=== PATIENT | male | born 1965 | race Caucasian/White ===

== ENCOUNTER → 2018-03-25 10:03 | Outpatient (CLI) | payer MEDICARE, SELFPAY ==
[2018-03-25 10:48] LABS: Absolute Lymphocyte Count 2.91 X10^3/ul (0.83-4.51); Absolute Neutrophil Count 14.6 X10^3/uL (2.0-7.7); Basophil# 0.02 X10^3/uL; Basophil% 0.1 % (0-1); Eosinophil# 0.01 X10^3/uL; Eosinophils% 0.1 % (0-5); Hematocrit 48.2 % (40-54); Hemoglobin 16.5 g/dl (13.0-16.5); Lymphocyte # 2.91 X10^3/ul (4.0); Lymphocyte % 15.2 % (19-41); Mean Corp Hgb Conc 34.2 g/gl (32-36); Mean Corpuscular Hgb 33.4 pg (27.0-32.0); Mean Corpuscular Volume 97.6 fL (80-94); Mean Platelet Vol. 12.4 fl (6.2-12.0); Monocyte# 1.44 X10^3/uL; Monocyte% 7.5 % (0-10); Neutrophil # 14.63 X10^3/uL (2.7-7.7); Neutrophil % 76.5 % (47-70); Platelet Count 224 K/mm3 (150-450); RBC Distribution Width CV 12.9 % (11.6-14.6); RBC Distribution Width SD 45.6 fl (35.1-43.9); Red Blood Count 4.94 M/mm3 (4.6-6.2); White Blood Count 19.1 K/mm3 (4.4-11.0)
[2018-03-25 10:52] LABS: POSITIVE COUNT NO; POSITIVE DIFFERENTIAL NO; POSITIVE MORPHOLOGY NO
[2018-03-25 11:16] LABS: AST(SGOT) 12 U/L (15-37); Alanine Aminotransfer ALT/SGPT 26 U/L (16-61); Alkaline Phosphatase 99 U/L (45-117); Anion Gap 10 (5-15); BUN 15 mg/dL (7-18); BUN/Creat Ratio 14.4 RATIO (10-20); Bilirubin, Direct 0.08 mg/dL (0.00-0.30); Calcium,Total 8.9 mg/dL (8.5-10.1); Chloride 107 mmol/L (98-107); Creatinine, Serum 1.04 mg/dL (0.70-1.30); EST Glomerular Filtration Rate 79 mL/min (>60); Est Glom Filt Rate - Afr Amer 95 mL/min (>60); Globulin 3.6 g/dL (2.2-4.2); Glucose 118 mg/dL (74-106); Protein, Total 7.6 g/dL (6.4-8.2); Sodium Level 142 mmol/L (136-145)
== END ==
PROVIDERS: Family Provider Family Medicine; PCP Family Medicine; Visit Provider Dermatology
DX: Z79.899 Other long term (current) drug therapy (principal)
CPT/HCPCS: 36415; 80048; 80076; 85025

== ENCOUNTER → 2018-04-15 10:33 | Outpatient (CLI) | payer MEDICARE, SELFPAY ==
[2018-04-15 11:38] LABS: Absolute Neutrophil Count 10.1 X10^3/uL (2.0-7.7); Basophil# 0.04 X10^3/uL; Basophil% 0.2 % (0-1); Eosinophil# 0.12 X10^3/uL; Eosinophils% 0.7 % (0-5); Hematocrit 47.8 % (40-54); Lymphocyte % 30.8 % (19-41); Mean Corp Hgb Conc 33.5 g/gl (32-36); Mean Corpuscular Hgb 33.1 pg (27.0-32.0); Mean Platelet Vol. 12.3 fl (6.2-12.0); Monocyte# 1.18 X10^3/uL; Monocyte% 7.1 % (0-10); Neutrophil # 10.06 X10^3/uL (2.7-7.7); Neutrophil % 60.9 % (47-70); Platelet Count 211 K/mm3 (150-450); RBC Distribution Width CV 12.9 % (11.6-14.6); RBC Distribution Width SD 46.7 fl (35.1-43.9); Red Blood Count 4.83 M/mm3 (4.6-6.2); White Blood Count 16.6 K/mm3 (4.4-11.0)
[2018-04-15 11:53] LABS: Differential Indicated SCAN CRITERIA MET; POSITIVE COUNT NO; POSITIVE DIFFERENTIAL YES; POSITIVE MORPHOLOGY NO
== END ==
PROVIDERS: Family Provider Family Medicine; PCP Family Medicine; Visit Provider Dermatology
DX: D72.829 Elevated white blood cell count, unspecified (principal); A63.0 Anogenital (venereal) warts; L53.8 Other specified erythematous conditions; L08.89 Other specified local infections of the skin and subcutaneous tissue; L43.8 Other lichen planus; B35.1 Tinea unguium
CPT/HCPCS: 36415; 85025

== ENCOUNTER → 2018-06-30 08:15 | Outpatient (CLI) | payer MEDICARE, SELFPAY ==
--- NOTE | 2018-06-30 08:17 | CT_ITS ---
HISTORY: 1PPD X 39 YEARS, COPD. LUNG CANCER SCREENING TECHNIQUE: Helically acquired images were obtained of the chest. A radiation dose optimization technique was used for this scan. IV Contrast dosage and agent: None. COMPARISON: None FINDINGS: Hyperinflation. No pulmonary nodule or mass. No pulmonary infiltrate or acute disease identified. No pleural effusion or significant pleural disease. No bronchiectasis. Atherosclerotic thoracic aorta which is normal in caliber. No pericardial effusion. 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 Cholecystectomy. CT/Low Dose CT Lung Screening IMPRESSION: 1. No pulmonary nodule, suspicious lesion, or acute disease. 2. Hyperinflation. 3. Atherosclerotic calcifications and previous CABG. 4. Recommend continued surveillance with follow-up low-dose CT chest exam in 1 year. Lung RADS 1: Negative Individualized dose optimization techniques were used for this CT. at 0001 Reported and signed by: Mauro Patricio MD Electronically Signed: Mauro Patricio, at 23:59 EST Tel , Service support ,
--- OUTSIDE RECORDS SUMMARY | 2018-08-25 13:23 | XMS RPT_ITS ---
:1965 Author Organization [place] Care Team Providers Name Role Phone JOSHUA RUBIO MD Attending Unavailable JOSHUA RUBIO MD Primary Care Unavailable FANNY CASTANO, DR. RAMESH Garsia Attending Unavailable JOSHUA RUBIO MD Primary Care Unavailable JOSHUA RUBIO MD Attending Unavailable JOSHUA RUBIO MD Primary Care Unavailable JOSHUA RUBIO MD Attending Unavailable JOSHUA RUBIO MD Primary Care Unavailable FANNY TIERNEY., DR. RAMESH Garsia Attending Unavailable JOSHUA RUBIO MD Primary Care Unavailable JOSHUA RUBIO MD Attending Unavailable JOSHUA RUBIO MD Primary Care Unavailable LOBO ALLEN Referring Unavailable LOBO ALLEN Attending Unavailable RAMESH ESCOBEDO CHAMBERLAIN Referring Unavailable TIFFANYLOBO Referring Unavailable KANJ, MOHAMED H Referring Unavailable KANJ, MOHAMED H Attending Unavailable KANJ, MOHAMED H Referring Unavailable KANJ, MOHAMED H Referring Unavailable ROXANNA SUN ([facility]) Attending Unavailable KANJ, MOHAMED H Referring Unavailable Ramesh Escobedo Attending Unavailable JOSHUA RUBIO Primary Care Unavailable Ramesh Escobedo Attending Unavailable Ramesh Escobedo Referring Unavailable JOSHUA RUBIO Primary Care Unavailable JOSHUA RUBIO Attending Unavailable JOSHUA RUBIO Referring Unavailable JOSHUA RUBIO Primary Care Unavailable PROBLEMS PROBLEMS DATE TYPE CONDITION / CODE ATTENDING STATUS SOURCE Active Unspecified right NA [place] [address] bundle-branch block / Clinic Main I45.10(ICD-10) [place] Repository Active Abnormal NA [place] [address] electrocardiogram Clinic Main (ECG) (EKG) / [place] R94.31(ICD-10) Repository Active Nicotine dependence, NA [place] [address] unspecified, Clinic Main uncomplicated / [place] F17.200(ICD-10) Repository Active Ventricular premature NA [place] [address] depolarization / Clinic Main I49.3(ICD-10) [place] Repository Active Leukemoid reaction / LOBO ALLEN Active [place] [address] D72.823(ICD-10) Clinic Main [place] Repository Active Elevated white blood NA [place] [address] cell count, Clinic Main unspecified / [place] D72.829(ICD-10) Repository Unknown Z79.899 - Other long Ramesh Escobedo Active [place] [address] term (current) drug Community therapy / Hospital Z79.899(ICD-10) Repository Admitting Encounter for RAMIRO TIERNEY, Active [place] [address] Diagnosis screening for JOSHUA Patiño [facility] malignant neoplasm of Repository prostate / Z12.5(ICD-10) Admitting Encounter for issue of RAMIRO TIERNEY, Active [place] [address] Diagnosis repeat prescription / JOSHUA Kaylyn [facility] Z76.0(ICD-10) Repository Admitting Other penitentiary FANNY CASTANO, Active [place] [address] Diagnosis (current) drug therapy RAMESH Garsia [facility] / Z79.899(ICD-10) Repository Admitting Other abnormal glucose RAMIRO TIERNEY, Active [place] [address] Diagnosis / R73.09(ICD-10) JOSHUA D. [facility] Repository Admitting Mixed hyperlipidemia / RAMIRO TIERNEY, Active [place] [address] Diagnosis E78.2(ICD-10) JOSHUA D. [facility] Repository Admitting Essential (primary) RAMIRO TIERNEY, Active [place] [address] Diagnosis hypertension / JOSHUA D. [facility] I10(ICD-10) Repository PROCEDURES PROCEDURES No Procedure Records FoundRESULTS RESULTS PROGRESS Observed: 06/30/2018 Status: COMPLETED Source: [facility] 2:55 PM [facility] REPOSITORY HNO ID: [id number] Author: Genesis Lugo (Health Aircraft Servicer) [place] Service: (none) Author Type: Health Educator Type: Progress Notes Filed: 06/30/2018 3:00 PM Note Text: Smoking Cessation Navigation Date contact made: 2017 Outcome of contact: Spoke with Stated eagerness/motivation to quit: Yes Attempts to Quit in the Past?: Yes Methods used to quit in the past: Wellbutrin Intervention Chosen By Patient: Declined Comments: Patient not open to talking with someone about quitting or group setting..etc. Would like to try acupuncture and/or hypnosis, but did not want to take phone number to schedule. eHealth Aircraft Servicer/Smoking Cessation Navigator: Genesis Low Health Aircraft Servicer LOW DOSE CT LUNG Observed: 06/30/2018 Status: F Source: [place] [facility] SCREENING 8:18 AM [facility] REPOSITORY [facility] Imaging Services [address] [place] [address] Lung Screening MR#: [id number] Acct: [id number] Name: GREG HAJI Rep #: [id number] : 1965 M 53 From: Mauro Patricio MD PCP: Joshua Rubio MD Status: REG CLI Study: Low Dose CT Lung Screening Date of Exam: 06/30/18 Exam# [id number] Ordering Dr: Joshua Rubio MD HISTORY: 1PPD X 39 YEARS, COPD. LUNG CANCER SCREENING TECHNIQUE: Helically acquired images were obtained of the chest. A radiation dose optimization technique was used for this scan. IV Contrast dosage and agent: None. COMPARISON: None FINDINGS: Hyperinflation. No pulmonary nodule or mass. No pulmonary infiltrate or acute disease identified. No pleural effusion or significant pleural disease. No bronchiectasis. Atherosclerotic thoracic aorta which is normal in caliber. No pericardial effusion. 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 Cholecystectomy. CT/Low Dose CT Lung Screening IMPRESSION: 1. No pulmonary nodule, suspicious lesion, or acute disease. 2. Hyperinflation. 3. Atherosclerotic calcifications and previous CABG. 4. Recommend continued surveillance with follow-up low-dose CT chest exam in 1 year. Lung RADS 1: Negative Individualized dose optimization techniques were used for this CT. at 0001 Reported and signed by: Mauro Patricio MD Electronically Signed: Mauro Patricio, at 23:59 EST Tel , Service support , CC: Joshua Rubio MD Photonics Technician: Signed HOSP Observed: 06/30/2018 Status: COMPLETED Source: [facility] 12:00 AM [facility] REPOSITORY Patient Update (WIQ) GREG HAJI JR. ([id number]) 1965 M Date Time Provider Department 06/30/18 GENESIS LOW (HEALTH METAL CONTROL COORDINATOR)WIQ During your visit today, we recorded the following information about you: Genesis Low Health Aircraft Servicer 06/30/2018 3:00 PM Signed Smoking Cessation Navigation Date contact made: 2017 Outcome of contact: Spoke with Stated eagerness/motivation to quit: Yes Attempts to Quit in the Past?: Yes Methods used to quit in the past: Wellbutrin Intervention Chosen By Patient: Declined Comments: Patient not open to talking with someone about quitting or group setting..etc. Would like to try acupuncture and/or hypnosis, but did not want to take phone number to schedule. eHealth Aircraft Servicer/Smoking Cessation Navigator: Genesis Low Health Aircraft Servicer Allergies As of Date: 06/30/2018 Noted Allergy Reaction LATEX 01/23/2011 2 - Rash Date Reviewed: 06/01/2018 Reviewed by: Melissa (Rn) OSITO Davey - Fully Assessed Reason for Visit: Smoking Cessation [1387] Prescriptions as of 06/30/2018 Sig: PERFLUTREN LIPID MICROSPHERES* Inject 1.3 mL intravenously a* PANTOPRAZOLE 40 MG TABLET,DEL* Take 40 mg by mouth once janneth* OFLOXACIN 0.3 % EAR DROPS Use 3 Drops in both ears twic* OXYCODONE-ACETAMINOPHEN 10 MG* Take 1 tablet by mouth twice * PRAVASTATIN 20 MG TABLET Take 20 mg by mouth once janneth* BUDESONIDE-FORMOTEROL HFA 160* Inhale 2 Puffs as instructed * NITROGLYCERIN 0.4 MG SUBLINGU* Dissolve 0.4 mg under the ton* LOSARTAN 25 MG TABLET Take 1 tablet by mouth once d* FLUTICASONE 50 MCG/ACTUATION * Use 1 Brandon in each nostril o* ALBUTEROL SULFATE HFA 90 MCG/* Inhale 2 Puffs as instructed * ASPIRIN 325 MG TABLET Take 1 tablet by mouth once d* MULTIVITAMIN TABLET Take 1 tablet by mouth once d* Problem List As Of Date 06/30/2018 Noted Resolved LUMBAR DISC DISPLACEMENT [M51.26] INVALID FOR* Status post aorto-coronary artery bypass graft * CAD (coronary artery disease) [I25.10] INVALID FOR* Hypertension [I10] INVALID FOR* Hyperlipidemia [E78.5] INVALID FOR* COPD (chronic obstructive pulmonary disease) (H*INVALID FOR* PVC (premature ventricular contraction) [I49.3] INVALID FOR* PVC's (premature ventricular contractions) [I49* Right bundle branch block [I45.10] Bundle branch block, right [I45.10] Encounter Status:Closed by DEVANTE HEALTH METAL CONTROL COORDINATORGENESIS on 06/30/18 PROGRESS Observed: 06/09/2018 Status: COMPLETED Source: [facility] 11:28 AM [facility] REPOSITORY HNO ID: [id number] Author: Roxanna Quiroz) [place] Service: (none) Author Type: Nurse Practitioner Type: Progress Notes Filed: 06/09/2018 11:31 AM Note Text: patient left without being seen today I called him from the lobby at 11:16am, but he had just walked out I tried to find him (called his name) in the lobby/upstairs with no success Roxanna Sun APRN.CNP CNOV Observed: 06/09/2018 Status: COMPLETED Source: [facility] 11:00 AM [facility] REPOSITORY Office Visit (TOTJB1) GREG HAJI JR. ([id number]) 1965 M Date Time Provider Department 06/09/18 11:00 AM ROXANNA SUN (DINH) TOTJB1 During your visit today, we recorded the following information about you: Roxanna Sun APRN.CNP 06/09/2018 11:31 AM Signed patient left without being seen today I called him from the lobby at 11:16am, but he had just walked out I tried to find him (called his name) in the lobby/upstairs with no success Roxanna Sun APRN.DINH Referring Provider: TRAVIS CHU [[id number]] Allergies As of Date: 06/09/2018 Noted Allergy Reaction LATEX 01/23/2011 2 - Rash Date Reviewed: 06/01/2018 Reviewed by: Melissa (Rn) OSITO Davey - Fully Assessed Primary Visit Diagnosis:Patient left without being seen [Z53.21] Prescriptions as of 06/09/2018 Sig: PERFLUTREN LIPID MICROSPHERES* Inject 1.3 mL intravenously a* PANTOPRAZOLE 40 MG TABLET,DEL* Take 40 mg by mouth once janneth* OFLOXACIN 0.3 % EAR DROPS Use 3 Drops in both ears twic* OXYCODONE-ACETAMINOPHEN 10 MG* Take 1 tablet by mouth twice * PRAVASTATIN 20 MG TABLET Take 20 mg by mouth once janneth* BUDESONIDE-FORMOTEROL HFA 160* Inhale 2 Puffs as instructed * NITROGLYCERIN 0.4 MG SUBLINGU* Dissolve 0.4 mg under the ton* LOSARTAN 25 MG TABLET Take 1 tablet by mouth once d* FLUTICASONE 50 MCG/ACTUATION * Use 1 Brandon in each nostril o* ALBUTEROL SULFATE HFA 90 MCG/* Inhale 2 Puffs as instructed * ASPIRIN 325 MG TABLET Take 1 tablet by mouth once d* MULTIVITAMIN TABLET Take 1 tablet by mouth once d* Problem List As Of Date 06/09/2018 Noted Resolved LUMBAR DISC DISPLACEMENT [M51.26] INVALID FOR* Status post aorto-coronary artery bypass graft * CAD (coronary artery disease) [I25.10] INVALID FOR* Hypertension [I10] INVALID FOR* Hyperlipidemia [E78.5] INVALID FOR* COPD (chronic obstructive pulmonary disease) (H*INVALID FOR* PVC (premature ventricular contraction) [I49.3] INVALID FOR* PVC's (premature ventricular contractions) [I49* Right bundle branch block [I45.10] Bundle branch block, right [I45.10] Encounter Status:Closed by ROXANNA SUN CNP on 06/09/18 CMP Collected: 06/09/2018 Status: F Source: [facility] 7:34 AM [facility] REPOSITORY TYPE CODE TESTS RESULT OUT OF REFERENCE UNITS RANGE LAB GLU(LOINC) 70-105 mg/dL Glucose High Level 121 LAB NA(LOINC) 136-145 mmol/L Sodium Level 142 LAB K(LOINC) 3.5-5.1 mmol/L Potassium Level 4.5 LAB CL(LOINC) 98-107 mmol/L Chloride 104 LAB CO2(LOINC) 22-29 mmol/L CO2 26 LAB EBAL(LOINC mEq/L ) Electrolyte Balance 12.0 LAB BUN(LOINC) 7-18 mg/dL BUN 17 LAB CRE(LOINC) 0.70-1.30 mg/dL Creatinine Lvl (s) 1.06 LAB BC(LOINC) 7-27 ratio BUN/Creatinine 16 Ratio LAB CA(LOINC) 8.4-10.2 mg/dL Calcium Lvl 9.2 LAB PROT(LOINC 6.4-8.2 G/dL ) Total Protein 6.8 LAB ALB(LOINC) 3.5-5.0 G/dL Albumin Level 4.0 LAB GLB(LOINC) G/dL Globulin 2.8 LAB AG(LOINC) 1.1-2.5 ratio A/G Ratio 1.4 LAB BILT(LOINC 0.2-1.0 mg/dL ) Bili Total 0.2 LAB AP(LOINC) 40-135 U/L Alk Phos 109 LAB AST(LOINC) 10-40 U/L AST/SGOT 20 LAB ALT(LOINC) 10-35 U/L ALT/SGPT High 36 Performed By: #### CMP, LIPID, GFR #### [address] [address] LIPID Collected: 06/09/2018 Status: F Source: [facility] 7:34 AM [facility] REPOSITORY TYPE CODE TESTS RESULT OUT OF REFERENCE UNITS RANGE LAB CHOL(LOINC 0-200 mg/dL ) Cholesterol 143 Result Comment: Cholesterol Reference Interval: Less than 200 Desirable 200-239 Borderline high risk 240 and above High risk LAB TRIG(LOINC) 0-150 mg/dL Triglycerides High 151 Result Comment: Triglyceride Reference Interval: Less than 150 Normal 150-199 Borderline high risk 200-499 High risk 500 or higher Very high risk LAB HD(LOINC) 40-60 mg/dL HDL Low Cholesterol 33 LAB LDL(LOINC) 0-130 mg/dL LDL Cholesterol 80 Performed By: #### CMP, LIPID, GFR #### [address] [address] .GFR Collected: 06/09/2018 Status: F Source: [facility] 7:34 AM [facility] REPOSITORY TYPE CODE TESTS RESULT OUT OF REFERENCE UNITS RANGE LAB GFRAA(LOINC ml/min/1.73 ) sqm GFR 88 Cameroonian Result Comment: GFR Population mean for , Non- Americans Ages 20-29 = 116 mL/min/1.73 sq.m. Ages 30-39 = 107 mL/min/1.73 sq.m. Ages 40-49 = 99 mL/min/1.73 sq.m. Ages 50-59 = 93 mL/min/1.73 sq.m. Ages 60-69 = 85 mL/min/1.73 sq.m. Ages 70+ = 75 mL/min/1.73 sq.m. Chronic Kidney Disease: Less than 60 mL/min/1.73 square meters End Stage Renal Disease: Less than 15 mL/min/1.73 square meters LAB GFRNO(LOINC) ml/min/1.73sqm GFR Non- 73 Result Comment: GFR Population mean for , Non- Americans Ages 20-29 = 116 mL/min/1.73 sq.m. Ages 30-39 = 107 mL/min/1.73 sq.m. Ages 40-49 = 99 mL/min/1.73 sq.m. Ages 50-59 = 93 mL/min/1.73 sq.m. Ages 60-69 = 85 mL/min/1.73 sq.m. Ages 70+ = 75 mL/min/1.73 sq.m. Chronic Kidney Disease: Less than 60 mL/min/1.73 square meters End Stage Renal Disease: Less than 15 mL/min/1.73 square meters Performed By: #### CMP, LIPID, GFR #### [place] [address] CNOV Observed: 06/01/2018 Status: COMPLETED Source: [facility] 9:15 AM [facility] REPOSITORY Office Visit (CARDMN) GREG HAJI JR. ([id number]) 1965 M Date Time Provider Department 06/01/18 9:15 AM TRAVIS CHU During your visit today, we recorded the following information about you: Pulse Blood pressure Weight Height 71/minute 128/74 103 kg 1.803 m Travis Chu MD, 06/01/2018 10:15 AM Signed [facility] [place] [facility] Department of Cardiovascular Medicine SECTION OF CARDIAC PACING and ELECTROPHYSIOLOGY OUTPATIENT VISIT DATE June 01, 2018 OUTPATIENT VISIT TYPE ESTABLISHED PRIMARY CARE PHYSICIAN: Joshua Rubio MD [address] [place] [address] CHIEF COMPLAINT: follow up palpitations HISTORY OF PRESENT ILLNESS: Mr. Haji is a 52 year old male who presents today for follow- up visit. NURSING INTAKE HISTORY: He has a past history of HTN, HLD, CAD s/p CABG x4, COPD, PVC's, RBBB, and cardiomyopathy. On 08/06/15 he underwent PVC ablation. He was last seen 05/28/2016. He has been feeling well, a few months ago he had a 6 week spell of palpitations. His symptoms are described as palpitations, heart racing, skipping. Past 2 weeks, little symptoms. No known triggers. No chest pains, dizziness, syncope. He last wore a monitor in 2017. PAST MEDICAL HISTORY Diagnosis Date - Bundle branch block, right - Cardiac revascularization with aortocoronary bypass anastomosis 4 vessel - COPD (chronic obstructive pulmonary disease) (HCC) - Hyperlipidemia - Hypertension - PVC's (premature ventricular contractions) - Right bundle branch block PAST SURGICAL HISTORY Procedure Laterality Date - EPS: SVT/VT ABLATION 08/06/15 - INCISION EARDRUM,ASPIR,GEN ANESTH Myringotomy/tubes - LAMINECTOMY,LUMBAR Laminectomy, lumbar - PAST SURGICAL HISTORY OF Lumbar discectomy with fusion , L3-S1 - PAST SURGICAL HISTORY OF removal of gallbladder - REMOVAL OF TONSILS,<12 Y/O Tonsillectomy SOCIAL HISTORY Social History Substance Use Topics - Smoking status: Current Every Day Smoker Packs/day: 1.00 Years: 41.00 Types: Cigarettes - Smokeless tobacco: Never Used Comment: went from 2 packs to 1 pack- trying to quit - Alcohol use No FAMILY HISTORY Problem Relation Age of Onset - Heart Father Alive age 77, history of bypass age 39, recent AAA surgery - Stroke Father - Hypertension Paternal Grandmother early 60's of [place] - Stroke Paternal Grandmother - Diabetes Sister Alive age 56 - Aneurysm Mother brain - Alcohol/Drug Brother - Cancer Maternal Grandfather leukemia - Obesity Sister ALLERGIES: ALLERGIES Allergen Reactions - Latex Rash MEDICATIONS: pantoprazole DR (PROTONIX) 40 mg tablet Take 40 mg by mouth once daily. ofloxacin (FLOXIN) 0.3 % otic solution Use 3 Drops in both ears twice daily. oxyCODONE-acetaminophen (PERCOCET) 10-325 mg tablet Take 1 tablet by mouth twice daily as needed. pravastatin (PRAVACHOL) 20 mg tablet Take 20 mg by mouth once daily. budesonide-formoterol (SYMBICORT) 160-4.5 mcg/actuation inhaler Inhale 2 Puffs as instructed once daily. nitroglycerin sublingual (NITROSTAT) 0.4 mg SL tablet Dissolve 0.4 mg under the tongue every 5 minutes as needed. losartan (COZAAR) 25 mg tablet Take 1 tablet by mouth once daily. fluticasone 50 mcg/actuation nasal spray Use 1 Brandon in each nostril once daily. albuterol HFA (PROAIR HFA) 90 mcg/actuation inhaler Inhale 2 Puffs as instructed every 4 hours as needed. aspirin 325 mg tablet Take 1 tablet by mouth once daily. multivitamin tablet Take 1 tablet by mouth once daily. UVALDO Archer RN I personally examined the patient and repeated the weaver components of the exam and cardiac history, past medical and surgical history, social and family history. The assessment and plan were formulated and discussed with the patient. PHYSICAL EXAMINATION: BP 128/74 Pulse 71 Ht 180.3 cm (5' 11) Wt 103 kg (227 lb) BMI 31.66 kg/m? Affect normal Oriented x3 GA NAD HENT unremarkable, No thyroidal bruit Abd Soft Ext No edema Skin warm, moist Lungs Clear Heart nl S1, S2 Motor 5/5 ECG sinus RBBB A: 1. Palpitation: This has been going on for started a couple month ago. Lasted for 2 weeks. Irregular heart beats but the irregularities are regular. . They are associated with SOB and tired. There is no precipitating or relieving factors. Will get a monitor standing order. He will put I ton when he has symptoms. 2. SOB: - with acitivity - stress echo 3. Smoking: - will see if we have Travis Chu MD Notes to Joshua Rubio MD Referring Provider: TRAVIS CHU [[id number]] Allergies As of Date: 06/01/2018 Noted Allergy Reaction LATEX 01/23/2011 2 - Rash Date Reviewed: 06/01/2018 Reviewed by: Melissa (Rn) OSITO Davey - Fully Assessed Primary Visit Diagnosis:Smoking [F17.200] Other Visit Diagnoses:Bundle branch block, right [I45.10] Ventricular premature depolarization [I49.3] Abnormal electrocardiogram [R94.31] Order(s):OUTSIDE VENDOR CARDIAC OUTPATIENT EXTENDED RHYTHM RECORDING (WITHOUT TELEMETRY) [[id number]] Order #: [id number]: 1 STRESS ECHO TREADMILL [[id number]] Order #: [id number]: 1 FUTURE perflutren lipid microspheres ([employer]) 1.1 mg/mL injection (to be provided with echo procedure)Inject 1.3 mL intravenously as directed.Disp: 1.3 mLRfl: 0 CONSULT TO SMOKING CESSATION [[id number]] Order #: [id number]: 1 Prescriptions as of 06/01/2018 Sig: PANTOPRAZOLE 40 MG TABLET,DEL* Take 40 mg by mouth once janneth* OFLOXACIN 0.3 % EAR DROPS Use 3 Drops in both ears twic* OXYCODONE-ACETAMINOPHEN 10 MG* Take 1 tablet by mouth twice * PRAVASTATIN 20 MG TABLET Take 20 mg by mouth once janneth* BUDESONIDE-FORMOTEROL HFA 160* Inhale 2 Puffs as instructed * NITROGLYCERIN 0.4 MG SUBLINGU* Dissolve 0.4 mg under the ton* LOSARTAN 25 MG TABLET Take 1 tablet by mouth once d* FLUTICASONE 50 MCG/ACTUATION * Use 1 Brandon in each nostril o* ALBUTEROL SULFATE HFA 90 MCG/* Inhale 2 Puffs as instructed * ASPIRIN 325 MG TABLET Take 1 tablet by mouth once d* MULTIVITAMIN TABLET Take 1 tablet by mouth once d* PERFLUTREN LIPID MICROSPHERES* Inject 1.3 mL intravenously a* Problem List As Of Date 06/01/2018 Noted Resolved LUMBAR DISC DISPLACEMENT [M51.26] INVALID FOR* Status post aorto-coronary artery bypass graft * CAD (coronary artery disease) [I25.10] INVALID FOR* Hypertension [I10] INVALID FOR* Hyperlipidemia [E78.5] INVALID FOR* COPD (chronic obstructive pulmonary disease) (H*INVALID FOR* PVC (premature ventricular contraction) [I49.3] INVALID FOR* PVC's (premature ventricular contractions) [I49* Right bundle branch block [I45.10] Bundle branch block, right [I45.10] Prescriptions ordered this encounter Disp Refills Start End PERFLUTREN LIPID MICROSPHERES 1.1 MG* 1.3 * 0 06/01/2018 06/01/2019 Class: In Office Route: INTRAVENOUS Sig: Inject 1.3 mL intravenously as directed. Encounter Status:Closed by TRAVIS CHU MD on 06/01/18 PROGRESS Observed: 06/01/2018 Status: COMPLETED Source: [facility] 9:06 AM [facility] REPOSITORY O ID: [id number] Author: Travis Chu MD Service: (none) Author Type: Physician Type: Progress Notes Filed: 06/01/2018 10:15 AM Note Text: [facility] [place] [facility] Department of Cardiovascular Medicine SECTION OF CARDIAC PACING and ELECTROPHYSIOLOGY OUTPATIENT VISIT DATE June 01, 2018 OUTPATIENT VISIT TYPE ESTABLISHED PRIMARY CARE PHYSICIAN: Joshua Rubio MD [facility] [place] [address] [place] [address] CHIEF COMPLAINT: follow up palpitations HISTORY OF PRESENT ILLNESS: Mr. Haji is a 52 year old male who presents today for follow- up visit. NURSING INTAKE HISTORY: He has a past history of HTN, HLD, CAD s/p CABG x4, COPD, PVC's, RBBB, and cardiomyopathy. On 08/06/15 he underwent PVC ablation. He was last seen 05/28/2016. He has been feeling well, a few months ago he had a 6 week spell of palpitations. His symptoms are described as palpitations, heart racing, skipping. Past 2 weeks, little symptoms. No known triggers. No chest pains, dizziness, syncope. He last wore a monitor in 2017. PAST MEDICAL HISTORY Diagnosis Date - Bundle branch block, right - Cardiac revascularization with aortocoronary bypass anastomosis 4 vessel - COPD (chronic obstructive pulmonary disease) (HCC) - Hyperlipidemia - Hypertension - PVC's (premature ventricular contractions) - Right bundle branch block PAST SURGICAL HISTORY Procedure Laterality Date - EPS: SVT/VT ABLATION 08/06/15 - INCISION EARDRUM,ASPIR,GEN ANESTH Myringotomy/tubes - LAMINECTOMY,LUMBAR Laminectomy, lumbar - PAST SURGICAL HISTORY OF Lumbar discectomy with fusion , L3-S1 - PAST SURGICAL HISTORY OF removal of gallbladder - REMOVAL OF TONSILS,<12 Y/O Tonsillectomy SOCIAL HISTORY Social History Substance Use Topics - Smoking status: Current Every Day Smoker Packs/day: 1.00 Years: 41.00 Types: Cigarettes - Smokeless tobacco: Never Used Comment: went from 2 packs to 1 pack- trying to quit - Alcohol use No FAMILY HISTORY Problem Relation Age of Onset - Heart Father Alive age 77, history of bypass age 39, recent AAA surgery - Stroke Father - Hypertension Paternal Grandmother early 60's of [place] - Stroke Paternal Grandmother - Diabetes Sister Alive age 56 - Aneurysm Mother brain - Alcohol/Drug Brother - Cancer Maternal Grandfather leukemia - Obesity Sister ALLERGIES: ALLERGIES Allergen Reactions - Latex Rash MEDICATIONS: pantoprazole DR (PROTONIX) 40 mg tablet Take 40 mg by mouth once daily. ofloxacin (FLOXIN) 0.3 % otic solution Use 3 Drops in both ears twice daily. oxyCODONE-acetaminophen (PERCOCET) 10-325 mg tablet Take 1 tablet by mouth twice daily as needed. pravastatin (PRAVACHOL) 20 mg tablet Take 20 mg by mouth once daily. budesonide-formoterol (SYMBICORT) 160-4.5 mcg/actuation inhaler Inhale 2 Puffs as instructed once daily. nitroglycerin sublingual (NITROSTAT) 0.4 mg SL tablet Dissolve 0.4 mg under the tongue every 5 minutes as needed. losartan (COZAAR) 25 mg tablet Take 1 tablet by mouth once daily. fluticasone 50 mcg/actuation nasal spray Use 1 Brandon in each nostril once daily. albuterol HFA (PROAIR HFA) 90 mcg/actuation inhaler Inhale 2 Puffs as instructed every 4 hours as needed. aspirin 325 mg tablet Take 1 tablet by mouth once daily. multivitamin tablet Take 1 tablet by mouth once daily. YANY ArcherN RN I personally examined the patient and repeated the weaver components of the exam and cardiac history, past medical and surgical history, social and family history. The assessment and plan were formulated and discussed with the patient. PHYSICAL EXAMINATION: BP 128/74 Pulse 71 Ht 180.3 cm (5' 11) Wt 103 kg (227 lb) BMI 31.66 kg/m? Affect normal Oriented x3 GA NAD HENT unremarkable, No thyroidal bruit Abd Soft Ext No edema Skin warm, moist Lungs Clear Heart nl S1, S2 Motor 5/5 ECG sinus RBBB A: 1. Palpitation: This has been going on for started a couple month ago. Lasted for 2 weeks. Irregular heart beats but the irregularities are regular. . They are associated with SOB and tired. There is no precipitating or relieving factors. Will get a monitor standing order. He will put I ton when he has symptoms. 2. SOB: - with acitivity - stress echo 3. Smoking: - will see if we have Travis Chu MD Notes to Joshua Rubio MD ECG COMPLETE W Observed: 06/01/2018 Status: F Source: [facility] 8:57 AM [facility] REPOSITORY NAME : GREG HAJI PID : [id number] : 1965 Gender : Male Race : ORD : [id number] Procedure Date : Jun 01 2018 08:57:39 Edit Date : Jun 01 2018 14:39:42 Diagnosis:NORMAL SINUS RHYTHM COMPLETE RIGHT BUNDLE BRANCH BLOCK ABNORMAL ECG Confirmed by Bhavin Oates ([id number]) on 06/01/2018 2:39:41 PM Ventricular Rate : 71 BPM Atrial Rate : 71 BPM P-R Interval : 196 ms QRS Duration : 140 ms Q-T Interval : 392 ms QTC Calculation(Bezet) : 425 ms P Austin : 53 degrees R Austin : 27 degrees T Austin : 56 degrees Test Reason : Location : 314 : J14 J14 Overread By : Bhavin Oates Edited By : Bhavin Oates Referred By : TRAVIS CHU Acquired by : DOROTEO CUELLAR PROGRESS Observed: 04/28/2018 Status: COMPLETED Source: [facility] 10:53 AM [facility] REPOSITORY O ID: [id number] Author: Lobo Allen Service: (none) Author Type: Physician Type: Progress Notes Filed: 05/03/2018 8:00 AM Note Text: Hematology and Medical Oncology PATIENT NAME: Greg Haji . CLINIC NO: [id number]. ATTENDING PHYSICIAN: Lobo Allen MD. DATE OF SERVICE:04/28/2018. DIAGNOSIS: chronic leukocytosis ( leukemoid reaction ) Consultation requested by Dr. Escobedo for an opinion regarding Chronic leukocytosis. My final recommendations will be communicated back to the requesting physician by way of shared Medical record or letter to requesting physician via US mail. PERFORMANCE STATUS:90% HPI: 52-year-old gentleman with history of ASCAD, hypertension and chronic leukocytosis. Patient also had chronic bronchitis / asthma AND chronic sinusitis from tobacco abuse. He was followed for over 10 years by a plant pathology teacher, Dr. Jacobsen. Although he did not have a bone marrow biopsy, patient has no significant change since his leukocytosis. previous workup including: elevated erythropoietin level AND hematocrit, no evidence of lymphoproliferative disorder with normal flow cytometry study. No evidence of myeloproliferative disorder; negative JAK2 AND BCR/ABL mutations. ? Patient denied fever, chills or night sweats. He has abdominal bloating but no early satiety or weight loss. 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 Escobedo. Patient has no problem with his teeth or sinuses at this time. No family history of leukemia or lymphoma. Patient denies alcohol use. He still smokes half pack cigarettes per day. He began smoking at age 11. Denies chest pain, or increased shortness of breath.?He has no rash or arthritis. Denies frequent or severe headaches and no neurological problem. MEDICATIONS: Current Outpatient Prescriptions: pantoprazole DR (PROTONIX) 40 mg tablet Take 40 mg by mouth once daily. ofloxacin (FLOXIN) 0.3 % otic solution Use 3 Drops in both ears twice daily. oxyCODONE-acetaminophen (PERCOCET) 10-325 mg tablet Take 1 tablet by mouth twice daily as needed. pravastatin (PRAVACHOL) 20 mg tablet Take 20 mg by mouth once daily. budesonide-formoterol (SYMBICORT) 160-4.5 mcg/actuation inhaler Inhale 2 Puffs as instructed once daily. nitroglycerin sublingual (NITROSTAT) 0.4 mg SL tablet Dissolve 0.4 mg under the tongue every 5 minutes as needed. losartan (COZAAR) 25 mg tablet Take 1 tablet by mouth once daily. fluticasone 50 mcg/actuation nasal spray Use 1 Brandon in each nostril once daily. albuterol HFA (PROAIR HFA) 90 mcg/actuation inhaler Inhale 2 Puffs as instructed every 4 hours as needed. aspirin 325 mg tablet Take 1 tablet by mouth once daily. multivitamin tablet Take 1 tablet by mouth once daily. No current facility-administered medications for this visit. . ALLERGIES: ALLERGIES Allergen Reactions - Latex Rash . PAST MEDICAL HISTORY: PAST MEDICAL HISTORY Diagnosis Date - Cardiac revascularization with aortocoronary bypass anastomosis 4 vessel - COPD (chronic obstructive pulmonary disease) (HCC) - Hyperlipidemia - Hypertension - PVC's (premature ventricular contractions) - Right bundle branch block . PAST SURGICAL HISTORY: PAST SURGICAL HISTORY Procedure Laterality Date - EPS: SVT/VT ABLATION 08/06/15 - INCISION EARDRUM,ASPIR,GEN ANESTH Myringotomy/tubes - LAMINECTOMY,LUMBAR Laminectomy, lumbar - PAST SURGICAL HISTORY OF Lumbar discectomy with fusion , L3-S1 - PAST SURGICAL HISTORY OF removal of gallbladder - REMOVAL OF TONSILS,<12 Y/O Tonsillectomy . FAMILY HISTORY: FAMILY HISTORY Problem Relation Age of Onset - Heart Father Alive age 77, history of bypass age 39, recent AAA surgery - Stroke Father - Hypertension Paternal Grandmother early 60's of [place] - Stroke Paternal Grandmother - Diabetes Sister Alive age 56 - Aneurysm Mother brain - Alcohol/Drug Brother - Cancer Maternal Grandfather leukemia - Obesity Sister . SOCIAL HISTORY:Social History Marital status: Single Spouse name: Years of education: Number of children: Social History Main Topics Smoking status: Current Every Day Smoker Packs/day: 1.00 Years: 39.00 Types: Cigarettes Smokeless tobacco: Never Used Comment: went from 2 packs to 1 pack- trying to quit Alcohol use: No Drug use: Yes Frequency: 2.0 times per week Comment: marijuana, he smokes 1 joint few times weekly . REVIEW OF SYSTEMS: CONSTITUTIONAL: No fevers, chills, nightsweats, unintended weight loss HEENT: Denies frequent or severe heaches, nasal congestion/sinus symptoms, problematic allergy problems. EYES: No diplopia or blurry vision. CARDIOVASCULAR: No chest pain, dyspnea, palpitations, orthopnea, PND, ankle edema. PULM: No dyspnea, unexplained cough. GI: No dysphagia/odynophagia, problematic reflux, constipation, diarrhea, changes in stool habits, hematochezia, melena. : No new urinary complaints, including dysuria, gross hematuria or pyuria. NEURO: No new balance problems, peripheral weakness/paresthesias or numbness of concern. MUSC-SKEL: No new joint pain, swelling, or erythema. PSY: No concerns regarding depression, anxiety or panic. INTEGUMENTARY: No new skin changes (rash, new or changing mole, new growth) PHYSICAL EXAMINATION: 52 year moderately obese gentleman appeared to be in no Acute distress BP 138/87 Pulse 78 Temp (Src) 97.8 (Oral) Ht 5' 9[verified by Melody Wilson MA[ (1.75m) Wt 226 lb (102.5kg) BMI 33.36 kg/(m2). HEENT: Head is normocephalic, atraumatic. Sclerae white, conjunctivae pink. PEERL. EOMs are intact. Oropharynx is benign. LYMPHATICS: There is no palpable adenopathy in the neck, supraclavicular region, axillae, or groin. LUNGS: Lungs are clear to percussion and auscultation.increased AP diameter, no wheezing. HEART: distant Heart sounds, regular rhythm, without murmurs, gallops, or rubs. ABDOMEN: obese, Soft and nontender without organomegaly. No masses can be palpated. EXTREMITIES: Are without edema. NEUROLOGIC: Exam is physiologic LABORATORY DATA: Component Latest Ref Rng AND Units 04/28/2018 WBC, [place] 3.70 - 11.00 k/uL 14.23 (H) RBC, [place] 4.20 - 6.00 m/uL 4.67 Hemoglobin, [place] 13.0 - 17.0 g/dL 15.8 Hematocrit, [place] 39.0 - 51.0 % 46.3 MCV, [place] 80.0 - 100.0 fL 99.1 MCH, [place] 26.0 - 34.0 pg 33.8 MCHC, [place] 30.5 - 36.0 g/dL 34.1 RDW, [place] 11.5 - 15.0 % 13.1 Platelet Cnt, [place] 150 - 400 k/uL 201 MPV, [place] 9.0 - 12.7 fL 11.7 Absol Gran Count 1.45 - 7.50 k/uL 8.25 (H) peripheral blood smear: Leukocytosis, neutrophilia with toxic granulation, occasional metamyelocyte, platelets adequate without clumping clotting. 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 There is no evidence of lymphoproliferative disorder, or myeloproliferative disorder. No clinical evidence of occult malignancy PLAN: - Repeat sedimentation rate and CRP today. - check hepatitis C antibody AND HIV-1 and 2 screen - I also recommend low dose CT scan of chest screening for lung cancer - I again emphasized that patient needs to stop smoking since this may cause a chronic leukocytosis along with polycythemia. - I spent 45 minutes in the visit, with more than 50% of the total [id number] time of the visit in counseling / coordination of care. The patient was allowed enough time to ask questions. All questions were answered to his satisfaction. Patient verbalized understanding of his abnormal CBC and agreed to follow up with primary care. Lobo Allen MD. ELECTRONICALLY SIGNED Cc: Dr. Joshua Rubio CNOVSP Observed: 04/28/2018 Status: COMPLETED Source: [facility] 10:10 AM [facility] REPOSITORY Visit (SP) Office ([place]) GREG HAJI JR. ([id number]) 1965 M Date Time Provider Department 04/28/18 10:10 AM LOBO ALLEN During your visit today, we recorded the following information about you: Temperature Pulse Blood pressure Weight 97.8 degrees 78/minute 138/87 102.5 kg Height 1.753 m Fang Mirza LPN 04/28/2018 9:49 AM Signed New patient. Discuss recent labs and leukocytosis. Fang Allen MD 04/28/2018 10:30 AM Signed Low dose CT scan chest for lung cancer screening AND STOP smoking. Lobo Allen MD 05/03/2018 8:00 AM Signed Hematology and Medical Oncology PATIENT NAME: Greg Haji Jr.. CLINIC NO: [id number]. ATTENDING PHYSICIAN: Lobo Allen MD. DATE OF SERVICE:04/28/2018. DIAGNOSIS: chronic leukocytosis ( leukemoid reaction ) Consultation requested by Dr. Escobedo for an opinion regarding Chronic leukocytosis. My final recommendations will be communicated back to the requesting physician by way of shared Medical record or letter to requesting physician via US mail. PERFORMANCE STATUS:90% HPI: 52-year-old gentleman with history of ASCAD, hypertension and chronic leukocytosis. Patient also had chronic bronchitis / asthma AND chronic sinusitis from tobacco abuse. He was followed for over 10 years by a plant pathology teacher, Dr. Jacobsen. Although he did not have a bone marrow biopsy, patient has no significant change since his leukocytosis. previous workup including: elevated erythropoietin level AND hematocrit, no evidence of lymphoproliferative disorder with normal flow cytometry study. No evidence of myeloproliferative disorder; negative JAK2 AND BCR/ABL mutations. ? Patient denied fever, chills or night sweats. He has abdominal bloating but no early satiety or weight loss. 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 Escobedo. Patient has no problem with his teeth or sinuses at this time. No family history of leukemia or lymphoma. Patient denies alcohol use. He still smokes half pack cigarettes per day. He began smoking at age 11. Denies chest pain, or increased shortness of breath.?He has no rash or arthritis. Denies frequent or severe headaches and no neurological problem. MEDICATIONS: Current Outpatient Prescriptions: pantoprazole DR (PROTONIX) 40 mg tablet Take 40 mg by mouth once daily. ofloxacin (FLOXIN) 0.3 % otic solution Use 3 Drops in both ears twice daily. oxyCODONE-acetaminophen (PERCOCET) 10-325 mg tablet Take 1 tablet by mouth twice daily as needed. pravastatin (PRAVACHOL) 20 mg tablet Take 20 mg by mouth once daily. budesonide-formoterol (SYMBICORT) 160-4.5 mcg/actuation inhaler Inhale 2 Puffs as instructed once daily. nitroglycerin sublingual (NITROSTAT) 0.4 mg SL tablet Dissolve 0.4 mg under the tongue every 5 minutes as needed. losartan (COZAAR) 25 mg tablet Take 1 tablet by mouth once daily. fluticasone 50 mcg/actuation nasal spray Use 1 Brandon in each nostril once daily. albuterol HFA (PROAIR HFA) 90 mcg/actuation inhaler Inhale 2 Puffs as instructed every 4 hours as needed. aspirin 325 mg tablet Take 1 tablet by mouth once daily. multivitamin tablet Take 1 tablet by mouth once daily. No current facility-administered medications for this visit. . ALLERGIES: ALLERGIES Allergen Reactions - Latex Rash . PAST MEDICAL HISTORY: PAST MEDICAL HISTORY Diagnosis Date - Cardiac revascularization with aortocoronary bypass anastomosis 4 vessel - COPD (chronic obstructive pulmonary disease) (HCC) - Hyperlipidemia - Hypertension - PVC's (premature ventricular contractions) - Right bundle branch block . PAST SURGICAL HISTORY: PAST SURGICAL HISTORY Procedure Laterality Date - EPS: SVT/VT ABLATION 08/06/15 - INCISION EARDRUM,ASPIR,GEN ANESTH Myringotomy/tubes - LAMINECTOMY,LUMBAR Laminectomy, lumbar - PAST SURGICAL HISTORY OF Lumbar discectomy with fusion , L3-S1 - PAST SURGICAL HISTORY OF removal of gallbladder - REMOVAL OF TONSILS,<12 Y/O Tonsillectomy . FAMILY HISTORY: FAMILY HISTORY Problem Relation Age of Onset - Heart Father Alive age 77, history of bypass age 39, recent AAA surgery - Stroke Father - Hypertension Paternal Grandmother early 60's of [place] - Stroke Paternal Grandmother - Diabetes Sister Alive age 56 - Aneurysm Mother brain - Alcohol/Drug Brother - Cancer Maternal Grandfather leukemia - Obesity Sister . SOCIAL HISTORY:Social History Marital status: Single Spouse name: Years of education: Number of children: Social History Main Topics Smoking status: Current Every Day Smoker Packs/day: 1.00 Years: 39.00 Types: Cigarettes Smokeless tobacco: Never Used Comment: went from 2 packs to 1 pack- trying to quit Alcohol use: No Drug use: Yes Frequency: 2.0 times per week Comment: marijuana, he smokes 1 joint few times weekly . REVIEW OF SYSTEMS: CONSTITUTIONAL: No fevers, chills, nightsweats, unintended weight loss HEENT: Denies frequent or severe heaches, nasal congestion/sinus symptoms, problematic allergy problems. EYES: No diplopia or blurry vision. CARDIOVASCULAR: No chest pain, dyspnea, palpitations, orthopnea, PND, ankle edema. PULM: No dyspnea, unexplained cough. GI: No dysphagia/odynophagia, problematic reflux, constipation, diarrhea, changes in stool habits, hematochezia, melena. : No new urinary complaints, including dysuria, gross hematuria or pyuria. NEURO: No new balance problems, peripheral weakness/paresthesias or numbness of concern. MUSC-SKEL: No new joint pain, swelling, or erythema. PSY: No concerns regarding depression, anxiety or panic. INTEGUMENTARY: No new skin changes (rash, new or changing mole, new growth) PHYSICAL EXAMINATION: 52 year moderately obese gentleman appeared to be in no Acute distress BP 138/87 Pulse 78 Temp (Src) 97.8 (Oral) Ht 5' 9[verified by Melody Wilson MA[ (1.75m) Wt 226 lb (102.5kg) BMI 33.36 kg/(m2). HEENT: Head is normocephalic, atraumatic. Sclerae white, conjunctivae pink. PEERL. EOMs are intact. Oropharynx is benign. LYMPHATICS: There is no palpable adenopathy in the neck, supraclavicular region, axillae, or groin. LUNGS: Lungs are clear to percussion and auscultation.increased AP diameter, no wheezing. HEART: distant Heart sounds, regular rhythm, without murmurs, gallops, or rubs. ABDOMEN: obese, Soft and nontender without organomegaly. No masses can be palpated. EXTREMITIES: Are without edema. NEUROLOGIC: Exam is physiologic LABORATORY DATA: Component Latest Ref Rng AND Units 04/28/2018 WBC, [place] 3.70 - 11.00 k/uL 14.23 (H) RBC, [place] 4.20 - 6.00 m/uL 4.67 Hemoglobin, [place] 13.0 - 17.0 g/dL 15.8 Hematocrit, [place] 39.0 - 51.0 % 46.3 MCV, [place] 80.0 - 100.0 fL 99.1 MCH, [place] 26.0 - 34.0 pg 33.8 MCHC, [place] 30.5 - 36.0 g/dL 34.1 RDW, [place] 11.5 - 15.0 % 13.1 Platelet Cnt, [place] 150 - 400 k/uL 201 MPV, [place] 9.0 - 12.7 fL 11.7 Absol Gran Count 1.45 - 7.50 k/uL 8.25 (H) peripheral blood smear: Leukocytosis, neutrophilia with toxic granulation, occasional metamyelocyte, platelets adequate without clumping clotting. 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 There is no evidence of lymphoproliferative disorder, or myeloproliferative disorder. No clinical evidence of occult malignancy PLAN: - Repeat sedimentation rate and CRP today. - check hepatitis C antibody AND HIV-1 and 2 screen - I also recommend low dose CT scan of chest screening for lung cancer - I again emphasized that patient needs to stop smoking since this may cause a chronic leukocytosis along with polycythemia. - I spent 45 minutes in the visit, with more than 50% of the total [id number]-[id number] time of the visit in counseling / coordination of care. The patient was allowed enough time to ask questions. All questions were answered to his satisfaction. Patient verbalized understanding of his abnormal CBC and agreed to follow up with primary care. Lobo Allen MD. ELECTRONICALLY SIGNED Cc: Dr. Johsua Rubio Referring Provider: RAMESH ESCOBEDO [[id number]] Allergies As of Date: 04/28/2018 Noted Allergy Reaction LATEX 01/23/2011 2 - Rash Date Reviewed: 04/28/2018 Reviewed by: Fang Mirza LPN - Fully Assessed Reason for Visit: New Patient [172] Primary Visit Diagnosis:Leukemoid reaction [D72.823] Order(s):C-REACTIVE PROTEIN (CRP) [SQCRP] Order #: [id number] FUTURE SED RATE WESTERGREN [SQWSR] Order #: [id number] FUTURE HIV 1,2 COMBO (AG/AB) [SQHIV12] Order #: [id number] FUTURE HEP C AB IA BLOOD [SQAHCV] Order #: [id number] FUTURE Level of Service: EST PATIENT VISIT LEVEL 5 [73970] Disposition: Return if symptoms worsen or fail to improve. Follow-up and Disposition History Recorded Prescriptions as of 04/28/2018 Sig: PANTOPRAZOLE 40 MG TABLET,DEL* Take 40 mg by mouth once janneth* OFLOXACIN 0.3 % EAR DROPS Use 3 Drops in both ears twic* OXYCODONE-ACETAMINOPHEN 10 MG* Take 1 tablet by mouth twice * PRAVASTATIN 20 MG TABLET Take 20 mg by mouth once janneth* BUDESONIDE-FORMOTEROL HFA 160* Inhale 2 Puffs as instructed * NITROGLYCERIN 0.4 MG SUBLINGU* Dissolve 0.4 mg under the ton* LOSARTAN 25 MG TABLET Take 1 tablet by mouth once d* FLUTICASONE 50 MCG/ACTUATION * Use 1 Brandon in each nostril o* ALBUTEROL SULFATE HFA 90 MCG/* Inhale 2 Puffs as instructed * ASPIRIN 325 MG TABLET Take 1 tablet by mouth once d* MULTIVITAMIN TABLET Take 1 tablet by mouth once d* Medication notes this encounter LANSOPRAZOLE 30 MG CAPSULE,DELAYED RELEASE >> Fang Mirza LPN 04/28/2018 9:42 AM >> FANG MIRZA LPN ThuApr 28, 2018 9:42 AM discontinued Problem List As Of Date 04/28/2018 Noted Resolved LUMBAR DISC DISPLACEMENT [M51.26] INVALID FOR* Status post aorto-coronary artery bypass graft * CAD (coronary artery disease) [I25.10] INVALID FOR* Hypertension [I10] INVALID FOR* Hyperlipidemia [E78.5] INVALID FOR* COPD (chronic obstructive pulmonary disease) (H*INVALID FOR* PVC (premature ventricular contraction) [I49.3] INVALID FOR* PVC's (premature ventricular contractions) [I49* Right bundle branch block [I45.10] Other instructions from your clinician: Low dose CT scan chest for lung cancer screening AND STOP smoking. Visit Notes: >> Fang Mirza LPN ThuApr 28, 2018 9:40 AM Status: Signed New patient. Discuss recent labs and leukocytosis. Fang Mirza LPN Encounter Status:Closed by LOBO ALLEN MD on 05/03/18 [facility] G ABS GR + CBC Collected: 04/28/2018 Status: F Source: [facility] 9:29 AM [facility] REPOSITORY TYPE CODE TESTS RESULT OUT OF REFERENCE UNITS RANGE LAB WWBC 3.70-11.00 k/uL [place] High WBC 14.23 LAB WRBC 4.20-6.00 m/uL [place] RBC 4.67 LAB WHGB 13.0-17.0 g/dL [place] Hemoglobin 15.8 LAB WHCT 39.0-51.0 % [place] Hematocrit 46.3 LAB WMCV 80.0-100.0 fL [place] MCV 99.1 LAB WMCH 26.0-34.0 pg [place] MCH 33.8 LAB WMCHC 30.5-36.0 g/dL [place] MCHC 34.1 LAB WRDW 11.5-15.0 % [place] RDW 13.1 LAB WPLT 150-400 k/uL [place] Platelet Cnt 201 LAB WMPV 9.0-12.7 fL [place] MPV 11.7 Result Comment: Test performed at: [facility], [address] [place] [address]. LAB ABGRAN 1.45-7.50 k/uL High Absol 8.25 Gran Count SED RATE WESTERGREN Collected: 04/28/2018 Status: F Source: [facility] 9:29 AM [facility] REPOSITORY TYPE CODE TESTS RESULT OUT OF REFERENCE UNITS RANGE LAB WSR 0-15 mm/hr Sed Rate Westergren 2 Performed By: #### WSR, CRP, AHCV, HIV12C #### [facility] [address] [address] C-REACTIVE PROTEIN Collected: 04/28/2018 Status: F Source: [place] 9:29 AM [facility] REPOSITORY TYPE CODE TESTS RESULT OUT OF REFERENCE UNITS RANGE LAB CRP <0.9 mg/dL C-Reactive 0.1 Protein Performed By: #### WSR, CRP, AHCV, HIV12C #### [facility] [address] [address] HEPATITIS C AB IA Collected: 04/28/2018 Status: F Source: [place] 9:29 AM [facility] REPOSITORY TYPE CODE TESTS RESULT OUT OF REFERENCE UNITS RANGE LAB AHCV Negative Hepatitis C Ab Negative IA Performed By: #### WSR, CRP, AHCV, HIV12C #### [facility] [address] [address] HIV 12 COMBO (AG/AB) Collected: 04/28/2018 Status: F Source: [facility] 9:29 AM [facility] REPOSITORY TYPE CODE TESTS RESULT OUT OF REFERENCE UNITS RANGE LAB HVAGAB Non Reactive HIV Non Reactive 12 Ag/Ab Result Comment: (NOTE) HIV Information: [place] Rev. Code 3701.243(E): This information has been disclosed to you from confidential records protected from disclosure by state law. You shall make no further disclosure of this information without the specific, written, and informed release of the individual to whom it pertains, or as otherwise permitted by state law. A general authorization for the release of medical or other information is not sufficient for the purpose of the release of HIV test results or diagnoses. Performed By: #### WSR, CRP, AHCV, HIV12C #### [facility] [address] [place], [place] [address] CBC W/DIFF, AUTOMATED Collected: 04/15/2018 Status: F Source: [place] 10:39 AM [facility] REPOSITORY TYPE CODE TESTS RESULT OUT OF RANGE REFERENCE UNITS LAB L100.1000 4.4-11.0 K/mm3 High WBC 16.6 LAB L100.1200 4.6-6.2 M/mm3 Normal RBC 4.83 LAB L100.1300 13.0-16.5 g/dl Normal HGB 16.0 LAB L100.1400 40-54 % Normal HCT 47.8 LAB L100.1500 80-94 fL High MCV 99.0 LAB L100.1600 27.0-32.0 pg High MCH 33.1 LAB L100.1700 32-36 g/gl Normal MCHC 33.5 LAB L100.1810 11.6-14.6 % Normal RDW CV 12.9 LAB L100.1820 35.1-43.9 fl High RDW SD 46.7 LAB L100.1900 150-450 K/mm3 Normal PLT 211 LAB L100.2000 6.2-12.0 fl High MPV 12.3 LAB L100.2100 47-70 % Normal NEUT% 60.9 LAB L100.2200 19-41 % Normal LY% 30.8 LAB L100.2300 0-10 % Normal MONO% 7.1 LAB L100.2400 0-5 % Normal EO% 0.7 LAB L100.2500 0-1 % Normal BASO% 0.2 LAB L100.2550 0.0-0.9 % Normal IM GRAN % 0.300 Result Comment: IG% - Immature Granulocytes (promyelocytes, myelocytes and metamyelocytes) > 1% indicates that a LEFT SHIFT is Present. LAB L100.2620 2.0-7.7 X10 3/uL High Absolute Neut 10.1 LAB L100.2720 0.83-4.51 X10 3/ul High Absolute Lymph 5.10 LAB L100.4500 Normal SMEAR COMMENT COMMENT Result Comment: SLIDE SCANNED - LYMPHOCYTOSIS. Performed By: #### L100.0100 #### [facility] [address] [place], [place], [id number] CBC W/DIFF, AUTOMATED Collected: 03/25/2018 Status: F Source: [place] 10:13 AM [facility] REPOSITORY TYPE CODE TESTS RESULT OUT OF RANGE REFERENCE UNITS LAB L100.1000 4.4-11.0 K/mm3 High WBC 19.1 LAB L100.1200 4.6-6.2 M/mm3 Normal RBC 4.94 LAB L100.1300 13.0-16.5 g/dl Normal HGB 16.5 LAB L100.1400 40-54 % Normal HCT 48.2 LAB L100.1500 80-94 fL High MCV 97.6 LAB L100.1600 27.0-32.0 pg High MCH 33.4 LAB L100.1700 32-36 g/gl Normal MCHC 34.2 LAB L100.1810 11.6-14.6 % Normal RDW CV 12.9 LAB L100.1820 35.1-43.9 fl High RDW SD 45.6 LAB L100.1900 150-450 K/mm3 Normal PLT 224 LAB L100.2000 6.2-12.0 fl High MPV 12.4 LAB L100.2100 47-70 % High NEUT% 76.5 LAB L100.2200 19-41 % Low LY% 15.2 LAB L100.2300 0-10 % Normal MONO% 7.5 LAB L100.2400 0-5 % Normal EO% 0.1 LAB L100.2500 0-1 % Normal BASO% 0.1 LAB L100.2550 0.0-0.9 % Normal IM GRAN % 0.600 Result Comment: IG% - Immature Granulocytes (promyelocytes, myelocytes and metamyelocytes) > 1% indicates that a LEFT SHIFT is Present. LAB L100.2620 2.0-7.7 X10 3/uL High Absolute Neut 14.6 LAB L100.2720 0.83-4.51 X10 3/ul Normal Absolute Lymph 2.91 Performed By: #### L100.0100 #### [facility] [address] [facility] [facility]. [place], [place], [address] BASIC METABOLIC Collected: 03/25/2018 Status: F Source: MARIA G PROFILE (BMP) 10:13 AM [facility] REPOSITORY TYPE CODE TESTS RESULT OUT OF RANGE REFERENCE UNITS LAB L501.0100 74-106 mg/dL High GLU 118 Result Comment: Fasting Glucose result from 100 to 125 mg/dL suggests IMPAIRED HOMEOSTASIS per A.D.A. criteria. Please note revised GLUCOSE reference range effective 2017. LAB L501.1000 7-18 mg/dL Normal BUN 15 LAB L501.1100 0.70-1.30 mg/dL Normal CREAT,SERUM 1.04 Result Comment: The validity of the calculated GFR AND GFRAA in patients over 70 years has not been determined. Clinical correlation is essential. LAB L501.1110 >60 mL/min Normal EST GFR 79 Result Comment: Non- GFR Calc LAB L501.1115 >60 mL/min Normal EST GFR - AA 95 Result Comment: GFR Calc LAB L501.1300 10-20 RATIO Normal BUN/CRE 14.4 LAB L501.2200 8.5-10.1 mg/dL CA Normal 8.9 LAB L501.5300 136-145 mmol/L NA Normal 142 LAB L501.5600 3.5-5.1 mmol/L K Normal 4.0 LAB L501.5900 98-107 mmol/L CL Normal 107 LAB L501.6100 21.0-32.0 mmol/L Normal CO2 25.0 LAB L501.6200 5-15 Normal GAP 10 Performed By: #### L500.2500, L500.3400 #### [facility] [address] [place], [address] LIVER PROFILE Collected: 03/25/2018 Status: F Source: MARIA G 10:13 AM [facility] REPOSITORY TYPE CODE TESTS RESULT OUT OF RANGE REFERENCE UNITS LAB L501.1500 6.4-8.2 g/dL Normal T PROT 7.6 LAB L501.1800 3.2-5.0 g/dL Normal ALB 4.0 LAB L501.1950 2.2-4.2 g/dL Normal GLOB 3.6 LAB L501.4100 15-37 U/L Low AST 12 LAB L501.4305 45-117 U/L Normal ALK P 99 LAB L501.4405 16-61 U/L Normal ALT 26 LAB L501.4600 0.20-1.00 mg/dL Normal T BILI 0.20 LAB L501.4700 0.00-0.30 mg/dL Normal D BILI 0.08 Performed By: #### L500.2500, L500.3400 #### [facility] [address] [place], [place], [address] CBC Collected: 12/09/2017 Status: F Source: [facility] 8:20 AM [facility] REPOSITORY TYPE CODE TESTS RESULT OUT OF REFERENCE UNITS RANGE LAB WBC(LOINC) 4.60-10.80 10 3/mcL High WBC 12.50 LAB RBCCT(LOINC 4.04-6.13 10 6/mcL ) RBC 4.86 LAB HGB(LOINC) 14.0-18.0 G/dL Hgb 16.2 LAB HCT(LOINC) 42.0-52.0 % Hct 48.1 LAB MCV(LOINC) 80.0-94.0 fL High MCV 98.9 LAB MCH(LOINC) 27.0-31.2 pg High MCH 33.4 LAB MCHC(LOINC) 31.8-35.4 G/dL MCHC 33.8 LAB RDW(LOINC) 11.5-14.5 % RDW 12.6 LAB PLT(LOINC) 130-400 10 3/mcL Platelet 202 LAB MPV(LOINC) 7.4-10.4 fL High MPV 11.6 Performed By: #### CBC, ADIFF, ANEU, BMP, HFP, GFR #### [place] [address] [place], [place] [address] .AUTO DIFF Collected: 12/09/2017 Status: F Source: [facility] 8:20 AM [facility] REPOSITORY TYPE CODE TESTS RESULT OUT OF REFERENCE UNITS RANGE LAB TALHA(LOINC) 37.0-80.0 % Neutrophil % 62.5 LAB LYM(LOINC) 10.0-50.0 % Lymphocyte % 26.6 LAB MON(LOINC) 1.7-13.0 % Monocyte % 8.4 LAB EO(LOINC) 0.0-7.0 % Eosinophil % 1.7 LAB BAS(LOINC) 0.0-2.5 % Basophil % 0.8 LAB ABLYM(LOIN 0.77-3.85 10 3/mcL C) Lymphocyte, 3.30 Absolute LAB CRIS(LOINC 0.15-1.00 10 3/mcL ) High Monocyte, 1.10 Absolute LAB AEOS(LOINC 0.00-0.40 10 3/mcL ) Eosinophil, 0.20 Absolute LAB ABAS(LOINC 0.00-0.19 10 3/mcL ) Basophil, 0.10 Absolute Performed By: #### CBC, ADIFF, ANEU, BMP, HFP, GFR #### [place] [id number] .NEUABS Collected: 12/09/2017 Status: F Source: [facility] 8:20 AM [facility] REPOSITORY TYPE CODE TESTS RESULT OUT OF REFERENCE UNITS RANGE LAB ANEU(LOINC) 2.85-6.16 10 3/mcL High Neutrophil, 7.80 Absolute Performed By: #### CBC, ADIFF, ANEU, BMP, [facility], GFR #### [place] [id number] BMP Collected: 12/09/2017 Status: F Source: [facility] 8:20 AM [facility] REPOSITORY TYPE CODE TESTS RESULT OUT OF REFERENCE UNITS RANGE LAB GLU(LOINC) 70-105 mg/dL Glucose High Level 129 LAB NA(LOINC) 136-146 mEq/L Sodium Level 139 LAB K(LOINC) 3.5-5.1 mEq/L Potassium Level 4.2 LAB CL(LOINC) 98-107 mEq/L Chloride 107 LAB CO2(LOINC) 22-29 mEq/L CO2 24 LAB EBAL(LOINC mEq/L ) Electrolyte Balance 8.0 LAB BUN(LOINC) 7.0-18.0 mg/dL BUN 11.1 LAB CRE(LOINC) 0.6-1.2 mg/dL Creatinine Lvl (s) 0.9 LAB BC(LOINC) 7-27 ratio BUN/Creatinine 12 Ratio LAB CA(LOINC) 8.4-10.2 mg/dL Calcium Lvl 9.5 Performed By: #### CBC, ADIFF, ANEU, BMP, HFP, GFR #### [place] [address] HFP Collected: 12/09/2017 Status: F Source: [facility] 8:20 AM [facility] REPOSITORY TYPE CODE TESTS RESULT OUT OF REFERENCE UNITS RANGE LAB PROT(LOINC) 6.0-8.3 G/dL Total Protein 6.3 LAB ALB(LOINC) 3.5-5.0 G/dL Albumin Level 4.1 LAB GLB(LOINC) G/dL Globulin 2.2 LAB AG(LOINC) 1.1-2.5 ratio A/G Ratio 1.9 LAB BILT(LOINC) 0.2-1.0 mg/dL Bili Total 0.2 LAB BILAD(LOINC 0.1-0.5 mg/dL ) Bili Direct 0.1 LAB BILI(LOINC) mg/dL Bili Indirect 0.1 LAB AP(LOINC) 40-135 IU/L Alk Phos 86 LAB AST(LOINC) 10-40 IU/L AST/SGOT 22 LAB ALT(LOINC) 10-35 IU/L ALT/SGPT 23 Performed By: #### CBC, ADIFF, ANEU, BMP, HFP, GFR #### [facility] [address] [place], [place] [address] .GFR Collected: 12/09/2017 Status: F Source: [facility] 8:20 AM [facility] REPOSITORY TYPE CODE TESTS RESULT OUT OF REFERENCE UNITS RANGE LAB GFRAA(LOINC ml/min/1.73 ) sqm GFR 105 Cameroonian Result Comment: GFR Population mean for , Non- Americans Ages 20-29 = 116 mL/min/1.73 sq.m. Ages 30-39 = 107 mL/min/1.73 sq.m. Ages 40-49 = 99 mL/min/1.73 sq.m. Ages 50-59 = 93 mL/min/1.73 sq.m. Ages 60-69 = 85 mL/min/1.73 sq.m. Ages 70+ = 75 mL/min/1.73 sq.m. Chronic Kidney Disease: Less than 60 mL/min/1.73 square meters End Stage Renal Disease: Less than 15 mL/min/1.73 square meters LAB GFRNO(LOINC) ml/min/1.73sqm GFR Non- >60 Result Comment: GFR Population mean for , Non- Americans Ages 20-29 = 116 mL/min/1.73 sq.m. Ages 30-39 = 107 mL/min/1.73 sq.m. Ages 40-49 = 99 mL/min/1.73 sq.m. Ages 50-59 = 93 mL/min/1.73 sq.m. Ages 60-69 = 85 mL/min/1.73 sq.m. Ages 70+ = 75 mL/min/1.73 sq.m. Chronic Kidney Disease: Less than 60 mL/min/1.73 square meters End Stage Renal Disease: Less than 15 mL/min/1.73 square meters Performed By: #### CBC, ADIFF, ANEU, BMP, HFP, GFR #### [place] [address] [place], [place] [address] LIPID Collected: 12/09/2017 Status: F Source: [facility] 8:20 AM [facility] REPOSITORY TYPE CODE TESTS RESULT OUT OF REFERENCE UNITS RANGE LAB CHOL(LOINC 131-200 mg/dL ) Low Cholesterol 115 Result Comment: Cholesterol Reference Interval: Less than 200 Desirable 200-239 Borderline high risk 240 and above High risk LAB TRIG(LOINC) 40-150 mg/dL Triglycerides 95 Result Comment: Triglyceride Reference Interval: Less than 150 Normal 150-199 Borderline high risk 200-499 High risk 500 or higher Very high risk LAB HD(LOINC) 35-90 mg/dL HDL Cholesterol 40 Result Comment: HDL Reference Interval: Less than 40 Low - high risk 60 or above Optimal/lowers risk LAB LDL(LOINC) 0-130 mg/dL LDL Cholesterol 56 Result Comment: LDL is a calculated result and requires a 12-hr fast. LDL Reference Interval: Less than 100 Optimal 100-129 Near or above optimal 130-159 Borderline high risk 160-189 High risk 190 and above Very high risk Performed By: #### LIPID, CMP, GFR, PSA #### [place] [address] [place], [place] [address] CMP Collected: 12/09/2017 Status: F Source: [facility] 8:20 AM [facility] REPOSITORY TYPE CODE TESTS RESULT OUT OF REFERENCE UNITS RANGE LAB GLU(LOINC) 70-105 mg/dL Glucose High Level 132 LAB NA(LOINC) 136-146 mEq/L Sodium Level 142 LAB K(LOINC) 3.5-5.1 mEq/L Potassium Level 4.3 LAB CL(LOINC) 98-107 mEq/L Chloride 107 LAB CO2(LOINC) 22-29 mEq/L CO2 25 LAB EBAL(LOINC mEq/L ) Electrolyte Balance 10.0 LAB BUN(LOINC) 7.0-18.0 mg/dL BUN 10.6 LAB CRE(LOINC) 0.6-1.2 mg/dL Creatinine Lvl (s) 0.9 LAB BC(LOINC) 7-27 ratio BUN/Creatinine 12 Ratio LAB CA(LOINC) 8.4-10.2 mg/dL Calcium Lvl 9.5 LAB PROT(LOINC 6.0-8.3 G/dL ) Total Protein 6.3 LAB ALB(LOINC) 3.5-5.0 G/dL Albumin Level 4.2 LAB GLB(LOINC) G/dL Globulin 2.1 LAB AG(LOINC) 1.1-2.5 ratio A/G Ratio 2.0 LAB BILT(LOINC 0.2-1.0 mg/dL ) Bili Total 0.2 LAB AP(LOINC) 40-135 IU/L Alk Phos 87 LAB AST(LOINC) 10-40 IU/L AST/SGOT 21 LAB ALT(LOINC) 10-35 IU/L ALT/SGPT 23 Performed By: #### LIPID, CMP, GFR, PSA #### [address] [address] .GFR Collected: 12/09/2017 Status: F Source: [facility] 8:20 AM [facility] REPOSITORY TYPE CODE TESTS RESULT OUT OF REFERENCE UNITS RANGE LAB GFRAA(LOINC ml/min/1.73 ) sqm GFR 109 Cameroonian Result Comment: GFR Population mean for , Non- Americans Ages 20-29 = 116 mL/min/1.73 sq.m. Ages 30-39 = 107 mL/min/1.73 sq.m. Ages 40-49 = 99 mL/min/1.73 sq.m. Ages 50-59 = 93 mL/min/1.73 sq.m. Ages 60-69 = 85 mL/min/1.73 sq.m. Ages 70+ = 75 mL/min/1.73 sq.m. Chronic Kidney Disease: Less than 60 mL/min/1.73 square meters End Stage Renal Disease: Less than 15 mL/min/1.73 square meters LAB GFRNO(LOINC) ml/min/1.73sqm GFR Non- >60 Result Comment: GFR Population mean for , Non- Americans Ages 20-29 = 116 mL/min/1.73 sq.m. Ages 30-39 = 107 mL/min/1.73 sq.m. Ages 40-49 = 99 mL/min/1.73 sq.m. Ages 50-59 = 93 mL/min/1.73 sq.m. Ages 60-69 = 85 mL/min/1.73 sq.m. Ages 70+ = 75 mL/min/1.73 sq.m. Chronic Kidney Disease: Less than 60 mL/min/1.73 square meters End Stage Renal Disease: Less than 15 mL/min/1.73 square meters Performed By: #### LIPID, CMP, GFR, PSA #### [address] [address] PSA Collected: 12/09/2017 Status: F Source: [facility] 8:20 AM [facility] REPOSITORY TYPE CODE TESTS RESULT OUT OF REFERENCE UNITS RANGE LAB PSA(INC) 0.00-4.00 ng/mL Prostate 0.27 Specific Antigen Performed By: #### LIPID, CMP, GFR, PSA #### [address] [address] TOXSC Collected: 11/02/2017 Status: F Source: [facility] 8:31 AM [facility] REPOSITORY TYPE CODE TESTS RESULT OUT OF REFERENCE UNITS RANGE LAB UTCA(LOINC ) U TCA (AO) Negative LAB AOUBAR(BÁRBARA NC) U Lesly (AO) Negative LAB AOUMETH(LO INC) U Methadone (AO) Negative LAB AOUBNZ(BÁRBARA NC) U Faisal (AO) Negative LAB AOUCAN(BÁRBARA NC) U Cannab (AO) Positive LAB CD:[id number](LOINC) Urine Opiates (AO) Negative LAB AOUAMP(BÁRBARA NC) U Ampheta (AO) Negative LAB AOUCOC(BÁRBARA NC) U Cocaine (AO) Negative LAB AOUPCP(BÁRBARA NC) U PCP (AO) Negative LAB CD:[id number](LOINC) QC TOXSC Valid Performed By: #### TOXSC #### [place] [address] [place], [place] [address] CBC Collected: 09/09/2017 Status: F Source: [facility] 10:35 AM [facility] REPOSITORY TYPE CODE TESTS RESULT OUT OF REFERENCE UNITS RANGE LAB WBC(LOINC) 4.60-10.80 10 3/mcL High WBC 11.40 LAB RBCCT(LOINC 4.04-6.13 10 6/mcL ) RBC 5.29 LAB HGB(LOINC) 14.0-18.0 G/dL Hgb 17.1 LAB HCT(LOINC) 42.0-52.0 % Hct 51.9 LAB MCV(LOINC) 80.0-94.0 fL High MCV 98.1 LAB MCH(LOINC) 27.0-31.2 pg High MCH 32.2 LAB MCHC(LOINC) 31.8-35.4 G/dL MCHC 32.8 LAB RDW(LOINC) 11.5-14.5 % RDW 13.0 LAB PLT(LOINC) 130-400 10 3/mcL Platelet 179 LAB MPV(LOINC) 7.4-10.4 fL High MPV 12.0 Performed By: #### CBC, ADIFF, ANEU, HFP #### [address] [address] .AUTO DIFF Collected: 09/09/2017 Status: F Source: [facility] 10:35 AM [facility] REPOSITORY TYPE CODE TESTS RESULT OUT OF REFERENCE UNITS RANGE LAB TALHA(LOINC) 37.0-80.0 % Neutrophil % 62.6 LAB LYM(LOINC) 10.0-50.0 % Lymphocyte % 25.6 LAB MON(LOINC) 1.7-13.0 % Monocyte % 9.4 LAB EO(LOINC) 0.0-7.0 % Eosinophil % 1.9 LAB BAS(LOINC) 0.0-2.5 % Basophil % 0.5 LAB ABLYM(LOIN 0.77-3.85 10 3/mcL C) Lymphocyte, 2.90 Absolute LAB CRIS(LOINC 0.15-1.00 10 3/mcL ) High Monocyte, 1.10 Absolute LAB AEOS(LOINC 0.00-0.40 10 3/mcL ) Eosinophil, 0.20 Absolute LAB ABAS(LOINC 0.00-0.19 10 3/mcL ) Basophil, 0.10 Absolute Performed By: #### CBC, ADIFF, ANEU, [facility] #### [place] [address] [place], [place] [address] .NEUABS Collected: 09/09/2017 Status: F Source: [facility] 10:35 AM [facility] REPOSITORY TYPE CODE TESTS RESULT OUT OF REFERENCE UNITS RANGE LAB ANEU(LOINC) 2.85-6.16 10 3/mcL High Neutrophil, 7.10 Absolute Performed By: #### CBC, ADIFF, ANEU, [facility] #### [place] [address] [place], [place] [address] HFP Collected: 09/09/2017 Status: F Source: [facility] 10:35 AM [facility] REPOSITORY TYPE CODE TESTS RESULT OUT OF REFERENCE UNITS RANGE LAB PROT(LOINC) 6.0-8.3 G/dL Total Protein 6.8 LAB ALB(LOINC) 3.5-5.0 G/dL Albumin Level 4.6 LAB GLB(LOINC) G/dL Globulin 2.2 LAB AG(LOINC) 1.1-2.5 ratio A/G Ratio 2.1 LAB BILT(LOINC) 0.2-1.0 mg/dL Bili Total 0.5 LAB BILAD(LOINC 0.1-0.5 mg/dL ) Bili Direct 0.1 LAB BILI(LOINC) mg/dL Bili Indirect 0.4 LAB AP(LOINC) 40-135 IU/L Alk Phos 107 LAB AST(LOINC) 10-40 IU/L AST/SGOT 21 LAB ALT(LOINC) 10-35 IU/L ALT/SGPT 27 Performed By: #### CBC, ADIFF, ANEU, [facility] #### [place] [address] [place], [place] [address] LIPID Collected: 09/09/2017 Status: F Source: [facility] 10:35 AM [facility] REPOSITORY TYPE CODE TESTS RESULT OUT OF REFERENCE UNITS RANGE LAB CHOL(LOINC 131-200 mg/dL ) Cholesterol 147 Result Comment: Cholesterol Reference Interval: Less than 200 Desirable 200-239 Borderline high risk 240 and above High risk LAB TRIG(LOINC) 40-150 mg/dL Triglycerides 144 Result Comment: Triglyceride Reference Interval: Less than 150 Normal 150-199 Borderline high risk 200-499 High risk 500 or higher Very high risk LAB HD(LOINC) 35-90 mg/dL HDL Cholesterol 35 Result Comment: HDL Reference Interval: Less than 40 Low - high risk 60 or above Optimal/lowers risk LAB LDL(LOINC) 0-130 mg/dL LDL Cholesterol 83 Result Comment: LDL is a calculated result and requires a 12-hr fast. LDL Reference Interval: Less than 100 Optimal 100-129 Near or above optimal 130-159 Borderline high risk 160-189 High risk 190 and above Very high risk Performed By: #### LIPID, GFR, CMP #### [address] [address] .GFR Collected: 09/09/2017 Status: F Source: [facility] 10:35 AM [facility] REPOSITORY TYPE CODE TESTS RESULT OUT OF REFERENCE UNITS RANGE LAB GFRAA(LOINC ml/min/1.73 ) sqm GFR 100 Cameroonian Result Comment: GFR Population mean for , Non- Americans Ages 20-29 = 116 mL/min/1.73 sq.m. Ages 30-39 = 107 mL/min/1.73 sq.m. Ages 40-49 = 99 mL/min/1.73 sq.m. Ages 50-59 = 93 mL/min/1.73 sq.m. Ages 60-69 = 85 mL/min/1.73 sq.m. Ages 70+ = 75 mL/min/1.73 sq.m. Chronic Kidney Disease: Less than 60 mL/min/1.73 square meters End Stage Renal Disease: Less than 15 mL/min/1.73 square meters LAB GFRNO(LOINC) ml/min/1.73sqm GFR Non- >60 Result Comment: GFR Population mean for , Non- Americans Ages 20-29 = 116 mL/min/1.73 sq.m. Ages 30-39 = 107 mL/min/1.73 sq.m. Ages 40-49 = 99 mL/min/1.73 sq.m. Ages 50-59 = 93 mL/min/1.73 sq.m. Ages 60-69 = 85 mL/min/1.73 sq.m. Ages 70+ = 75 mL/min/1.73 sq.m. Chronic Kidney Disease: Less than 60 mL/min/1.73 square meters End Stage Renal Disease: Less than 15 mL/min/1.73 square meters Performed By: #### LIPID, GFR, CMP #### [place] [address] [place], [place] [address] CMP Collected: 09/09/2017 Status: F Source: [facility] 10:35 AM [facility] REPOSITORY TYPE CODE TESTS RESULT OUT OF REFERENCE UNITS RANGE LAB 1547-9 70-105 mg/dL GLUCOSE High 108 LAB NA(LOINC) 136-146 mEq/L Sodium Level 140 LAB K(LOINC) 3.5-5.1 mEq/L Potassium Level 4.8 LAB CL(LOINC) 98-107 mEq/L Chloride 103 LAB CO2(LOINC) 22-29 mEq/L CO2 26 LAB EBAL(LOINC mEq/L ) Electrolyte Balance 11.0 LAB BUN(LOINC) 7.0-18.0 mg/dL BUN 10.4 LAB CRE(LOINC) 0.6-1.2 mg/dL Creatinine Lvl (s) 0.9 LAB BC(LOINC) 7-27 ratio BUN/Creatinine 12 Ratio LAB CA(LOINC) 8.4-10.2 mg/dL Calcium Lvl 9.2 LAB PROT(LOINC 6.0-8.3 G/dL ) Total Protein 6.7 LAB ALB(LOINC) 3.5-5.0 G/dL Albumin Level 4.6 LAB GLB(LOINC) G/dL Globulin 2.1 LAB AG(LOINC) 1.1-2.5 ratio A/G Ratio 2.2 LAB BILT(LOINC 0.2-1.0 mg/dL ) Bili Total 0.4 LAB AP(LOINC) 40-135 IU/L Alk Phos 107 LAB AST(LOINC) 10-40 IU/L AST/SGOT 21 LAB ALT(LOINC) 10-35 IU/L ALT/SGPT 28 Performed By: #### LIPID, GFR, CMP #### [place] [address] [place], [place] [address] ALLERGIES ALLERGIES DATE TYPE / CODE NAME / CODE REACTION SEVERITY SOURCE 08/20/2014 Drug Latex, Natural Unknown Unknown [place] [facility] Allergy/4160 Rubber/[id number] [facility] [address](SNOMED 526(RXNORM) Repository CT) 01/23/2011 DRUG LATEX RASH [facility] INGREDI/[address] [place] [address](SNOMED Repository CT) ENCOUNTERS ENCOUNTERS ADMIT/DISCHARGE ACCOUNT NUMBER ADMITTING ENCOUNTER LOCATION SOURCE CLASS 06/30/2018 [id number] Ambulatory [facility] ding:CT Repository 06/09/2018 [id number] Ambulatory BBuilding:DR Cruz [facility] Repository 06/09/2018 [id number] Ambulatory [facility] [address] [place] Repository 06/09/2018/06/09/20 [id number] Ambulatory [address] Main [place] Repository 06/01/2018/06/01/20 [id number] Ambulatory [address] [place] Repository 06/01/2018 [id number] Ambulatory [facility] [place] Repository 04/28/2018/04/29/20 [id number] Ambulatory [address] Repository 04/28/2018/05/03/20 [id number] Ambulatory [address] Repository 04/28/2018/04/29/20 [id number] Ambulatory [address] Repository 04/15/2018 [id number] Ambulatory [facility] ding:LAB Repository 03/25/2018 [id number] Ambulatory [facility] ding:LAB Repository 12/09/2017/12/14/19 [id number] Ambulatory [address] ding:[employer] Repository 12/09/2017/12/14/19 [id number] Ambulatory [address] ding:[facility] Repository 11/02/2017/11/07/19 [id number] Ambulatory ANTHONY Anthony [address] [place] [address] ding:[employer] Repository 09/09/2017/09/13/19 [id number] Ambulatory [address] ding:[facility] Repository 09/09/2017/09/13/19 [id number] [facility] ding:[facility] Repository PAYERS PAYERS ENCOUNTER GUARANTOR PAYER SUBSCRIBER SOURCE 06/30/2018 GREG Cummins Jr.[address] Insurance:MEDICARE Jr.: [place] [facility] [id number] [place] [address]Yur: Number: Repository [id number] (HP) Date:2018-06-17 06/30/2018 Secondary NOT GIVENUNK Maria G Insurance:SELF PAY [facility] Number: Effective Repository Date:2018-06-17 06/09/2018 GREG Montanez HAJI [facility] JRDOB: Insurance:MEDICARE JRDOB: [facility] [id number] PART [facility] Number: [id number] Repository MIGUEL BARNES [id number] MIGUEL BARNES [place], [place] Date:2018-06-09 [place] [address]~[id number] [id number]: (951) @[facility] HOSPITALTarah: Name:[facility] [phone] Administrators LLCPO (HP)Tel: (000) (HP)Tel: (999) [address] [address]Kwukifyug, 000-0000 (WP) [phone] (WP) [place] [address]SQ: 04/15/2018 Greg Haji [facility] Greg Cummins [id number] Insurance:MEDICARE JRDOB: Community [place] [facility] [id number] Hospital [place] [address]Bwa: Number: Repository [id number] (HP) Date:2018-04-15 04/15/2018 Secondary NOT GIVENUNK [place] Insurance:SELF PAY [facility] Number: Effective Repository Date:2018-04-15 03/25/2018 Greg Haji [facility] Greg Cummins [id number] Insurance:MEDICARE JRDOB: Community [place] [facility] [id number] Hospital [place] [address]Kko: Number: Repository [id number] (HP) Date:2018-03-25 03/25/2018 Secondary NOT GIVENUNK [place] Insurance:SELF PAY [facility] Number: Effective Repository Date:2018-03-25 12/09/2017 [facility] JRDOB: Insurance:MEDICARE JRDOB: [facility] PART BPolicy Number: [id number] [id number] JESUS ALBERTOZEN [place], [place] Date:2017-12-09 [place] [address]~[id number] [id number]: 330) @[facility]ITALel: Name:[facility] [phone] Administrators LLCPO (HP)Tel: (000) (HP)Tel: (999) [address] [address]Jtmhmanua, 000-0000 (WP) [phone] (WP) [place] [address]XK: 12/09/2017 GREG [facility] JRDOB: Insurance:MEDICARE JRDOB: [facility] PART BPolicy Number: [id number] Repository [address] [id number] [place], [place] Date:2017-12-09 [place] [address]~[id number] [phone]: 330) @[email or web address].COMTel: Name:[facility] [phone] Administrators LLCPO (HP)Tel: (000) (HP)Tel: (999) [address] [address]Tqoglmthh, 000-0000 (WP) [phone] ([place]) [place] [address]HS: 11/02/2017 [facility] JRDOB: Insurance:MEDICARE JRDOB: [facility] PART BPolicy Number: [id number] Repository [address] [id number] [place], [place] Date:2017-11-02 [place] [address]~[id number]: (330) @[email or web address].COMTel: Name:[facility] ASSOCIATIONPelon [phone] Administrators LLCPO (HP)Tel: (000) (HP)Tel: ([phone]) [address] [address]Phjdrnnhu, 000-0000 (WP) [phone] (WP) [place] [address]AN: 09/09/2017 [facility] JRDOB: Insurance:MEDICARE JRDOB: [facility] PART BPolicy Number: [id number] [id number] [facility] [place] [place] Date:2017-09-09 - [place] [address]~[id number]: (330) @[employer].COMTel: Name:[facility] ASSOCIATIONPelon [phone] Administrators LLCPO (HP)Tel: (000) (HP)Tel: (999) [phone], 000-0000 (WP) [phone] (WP) [place] [address]MJ: 09/09/2017 [facility] JRDOB: Insurance:MEDICARE JRDOB: [facility] PART BPolicy Number: [id number] [id number] [facility] [place] [place] Date:2017-09-09 [place] [address]~[id number]: (330) @[employer].COMTel: Name:[facility] ASSOCIATIONPelon [phone] Administrators LLCPO (HP)Tel: (000) (HP)Tel: (999) [address] [address]Rawmlhkol, 000-0000 (WP) [phone] (WP) [place] [address]XN:
--- OUTSIDE RECORDS SUMMARY | 2018-08-25 13:23 | XMS RPT_ITS ---
:1965 Author Organization [facility] Address [address] [place] [address] Phone Care Team Providers Name Role Phone Hortensia TIERNEY, Moo Gifford Reason for Visit Reason For Visit Description Start Date New Complaint Preliminary reason for visit data, not yet signed by the author as of lower back pain Preliminary reason for visit data, not yet signed by the author as of Chief Complaint Chief Complaint Description Start Date lower back pain Preliminary chief complaint data, not yet signed by the author as of Instructions Instruction Description Start Date Patient advised to follow-up with Primary Care Physician for BMI management. Plan of Care Type Date Detail Appointment 09:00 AM Moo Bazan MD, [address] [place] [address], [id number], Patient education \[id number] Medications Medication Instructions Start Stop Generic Name NDC Provider Date Date FLUTICASONE once daily / FLUTICASONE [id number] Moo V PROPIONATE SUSP 31 PROPIONATE SUSP Hortensia TIERNEY VENTOLIN HFA one puff as / ALBUTEROL [id number] Moo V AERS needed 31 SULFATE AERS Hortensia TIERNEY SYMBICORT AERO one puff daily / BUDESONIDE-FORM [id number] Moo V 31 OTEROL FUMARATE Hortensia TIERNEY AERO OFLOXACIN (OP) one drop 2x day / OFLOXACIN SOLN [id number] Moo V SOLN 31 Hortensia TIENREY PANTOPRAZOLE one tab daily / PANTOPRAZOLE [id number] Moo Chapman SODIUM 40 MG 31 SODIUM Hortensia TIERNEY TBEC LOSARTAN one tab daily / LOSARTAN [id number] Moo Chapman POTASSIUM 25 MG 31 POTASSIUM Hortensia TIERNEY TABS PRAVASTATIN one tab daily / PRAVASTATIN 26208001659 Moo Chapman SODIUM 20 MG 31 SODIUM Hortensia TIERNEY TABS ASPIRIN 325 MG take 1 tablet / Susan TABS (ASPIRIN) once daily 26 [place] [employer] PERCOCET 10-325 take 1 tablet / OXYCODONE-ACETA [id number] Susan MG TABS four times a 26 MINOPHEN [place] [employer] day MULTIVITAMINS take 1 tablet / MULTIPLE Susan TABS once daily 11 VITAMIN [place] [employer] Conditions or Problems Problem Problem Code Onset Status Entry Provider Comment Standard Annotate Name Date Date Description History of [id number] Active Moo Chapman History of spinal (SNOMED CT) / Taliwal spinal fusion fusion L3-S1 Spinal [id number] (SNOMED Active Moo V Spinal stenosis CT) Taliwal stenosis of of lumbar MD lumbar region region L2-3 Allergies, Adverse Reactions, Alerts Allergy Name Reaction Start Date Severity Status Provider Description LATEX rash Critical Active Moo Bazan MD Social History Concept Description Observation Name Observation Value Units Start Date Tobacco use and SMOK ADVICE Yes exposure Preliminary social history data, not yet signed by the author as of Vital Signs Date Name Value Unit Description BMI (Body Mass 32.87 kg/m2 Body Mass Index Index) [Ratio] Preliminary vital sign data, not yet signed by the author as of BP Diastolic 74 mm[Hg] blood pressure, diastolic Preliminary vital sign data, not yet signed by the author as of BP Systolic 124 mm[Hg] blood pressure, systolic Preliminary vital sign data, not yet signed by the author as of Heart Rate 64 /min pulse rate E&M Preliminary vital sign data, not yet signed by the author as of Height 69.802120 [in_us] height E&M Preliminary vital sign data, not yet signed by the author as of Height 177 cm height in centimeters E&M Preliminary vital sign data, not yet signed by the author as of Weight Measured 225 [lb_av] weight E&M Preliminary vital sign data, not yet signed by the author as of Weight Measured 102 kg weight in kilograms E&M Preliminary vital sign data, not yet signed by the author as of Results Date Name Value Unit Range Flag Description Office Visit: New Complaint, Rm: 1 MEDS REVIEW Done Documentation of current medications (procedure) Preliminary observation data, not yet signed by the author as of SMOK ADVICE Yes Smoking cessation education (procedure) Preliminary observation data, not yet signed by the author as of Preliminary observation data, not yet signed by the author as of MRI HX of the lumbar on MRI (magnetic 02/01/2018 at [facility]) history Preliminary observation data, not yet signed by the author as of Clinical Summary: HMSPatientID NOP account number Procedures Code Procedure Name Date Entry Date [id number]-37523 XR LUMBAR 2-3 VWS AP/LAT L0641 BASIC LUMBAR SUPPORT (BREG) G8730 Pain assessment documented as positive - follow-up documented G8427 Current medications documented 4004F Tobacco screening was positive - cessation counseling received G8417 BMI documented as above normal parameters - follow-up documented G8783 Blood pressure within normal parameters - no follow-up required [facility]-[id number] Patient Encounter Medications Administered No information available. Immunizations No information available. Advance Directives There may be information available, but it has not been provided by the sender. Assessments There may be information available, but it has not been provided by the sender. Review of Systems There may be information available, but it has not been provided by the sender. Family History There may be information available, but it has not been provided by the sender. History of Past Illness There may be information available, but it has not been provided by the sender. History of Present Illness There may be information available, but it has not been provided by the sender.
== END ==
PROVIDERS: Family Provider Family Medicine; PCP Family Medicine; Referring Provider Family Medicine; Visit Provider Family Medicine
DX: Z87.891 Personal history of nicotine dependence (principal); F17.200 Nicotine dependence, unspecified, uncomplicated
CPT/HCPCS: G0297

== ENCOUNTER → 2019-07-05 13:40 | Outpatient (CLI) | payer MEDICARE, SELFPAY ==
[2019-06-28 11:46] VITALS: BMI 32.8
--- NOTE | 2019-07-05 13:46 | CT_ITS ---
STUDY: LOW DOSE CT LUNG CANCER SCREENING REASON FOR EXAM: Male, 54 years old. LUNG CANCER SCREENING. 1 PPD X 43 YEARS. CABG RADIATION DOSAGE (If Supplied By Facility): CTDIvol = ( 4.02 ) mGy, DLP = ( 143.46 ) mGycm TECHNIQUE: No contrast was administered. Low dose technique was utilized (average mAS-38 and kVp 120). 1.25 mm axial source images with a slice interval of 1.25-mm were reconstructed in lung windows. 2.5 mm axial source images with a slice interval of 2.5-mm were reconstructed in lung windows. 5.0 mm axial source images with a slice interval of 5.0-mm were reconstructed in soft tissue windows. Nodule measured using lung windows on PACS and/or independent workstation with automated measurement of minimum and maximum diameter. Nodule measurement reported as average diameter rounded to the nearest whole number. Growth is defined as an increase ins size of greater than 1.5 mm. COMPARISON: CT lung cancer screening dated June 30, 2019 Bilateral interstitial thickening and tree-in-bud nodularity reidentified in the bilateral upper lobes without significant interval change. No focal consolidation is seen. No pleural effusion is present. No active pulmonary edema is present. There is no demonstrated pleural abnormality. Sternal cerclage wires and vascular clips are present from a prior sternotomy and coronary artery bypass graft procedure (CABG). Normal heart size. Normal mediastinum. Normal hilar regions. Normal unenhanced pulmonary arteries. There is minor atherosclerotic calcification of the aortic arch with tortuosity and elongation of the aortic arch and descending thoracic aorta. There are multi-level degenerative changes of the thoracic spine. No significant process demonstrated in the upper abdomen. Total lung nodules (excluding granulomas): None Emphysema: Not demonstrated on the current study CT/Low Dose CT Lung Screening IMPRESSION: 1. Minor interstitial thickening and tree-in-bud nodularity of the bilateral upper lobes likely due to chronic interstitial lung disease. 2. Lung-RADS category 1 - Continue annual screening with LDCT in 12 months. IMPORTANT NOTES FOR USE: ACR Lung-RADS Version 1.0 Assessment Categories Release Date: November 28, 2013 Category: Coded 0-4 bases on nodule(s) with highest degree of suspicion. Negative screen is defined as categories 1 and 2; a positive screen is defined as categories 3 and 4. Category 3 and 4A nodules that are unchanged on interval CT should be coded as category 2, and individuals returned to screening in 12 months. Category 4X: Category 3 or 4 nodules with additional imaging findings that increase the suspicion of lung cancer, such as spiculation, GGN that doubles in size in 1 year, enlarged lymph notes, etc. Category Modifiers: S (significant finding unrelated to lung cancer) and C (prior history of treated lung cancer) may be added to the 0-4 Lung-RADS Electronically Signed: Amor Rinaldi MD at 13:24 EST , Service support ,
== END ==
PROVIDERS: Family Provider Family Medicine; PCP Family Medicine; Referring Provider Family Medicine; Visit Provider Family Medicine
DX: F17.210 Nicotine dependence, cigarettes, uncomplicated (principal); Z12.2 Encounter for screening for malignant neoplasm of respiratory organs
CPT/HCPCS: G0297

== ENCOUNTER → 2019-07-13 12:47 | Outpatient (CLI) | payer MEDICARE, SELFPAY ==
[2019-06-28 11:46] VITALS: BMI 32.8
--- NOTE | 2019-07-13 12:49 | ECHOD_ITS ---
Reason For Study: CAD/ASHD Procedure This was a 2D Doppler, Color Flow transthoracic echocardiogram. Exam performed in department. Left Ventricle Normal size and thickness. The estimated ejection fraction is 65 %. Normal diastology for age. No regional wall motion abnormalities noted. Right Ventricle Normal size and thickness. Normal systolic function. Atria Normal left atrium. Normal right atrium. Normal atrial septum. Mitral Valve The mitral valve is structurally normal. No prolapse or stenosis seen. Tricuspid Valve Normal tricuspid valve. Unable to estimate RV systolic pressure due to insufficient tricuspid regurgitant envelope. Aortic Valve Normal aortic valve. Trisinus/trileaflet aortic valve. Pulmonic Valve Normal pulmonic valve. Great Vessels Normal aortic root. Normal arch. Normal inferior vena cava. Inferior vena cava collapse with sniff. Pericardium/Pleural No pericardial effusion. MMode/2D Measurements & Calculations LVIDd: 4.9 cm IVSd: 1.6 cm Ao root diam: 3.5 cm LVIDs: 3.0 cm LVPWd: 1.4 cm LA dimension: 4.2 cm FS: 39.3 % LAV(MOD-bp): 35.4 ml LA A4 area: 14.7 cm2 RA A4 area: 15.3 cm2 LAV(MOD-bp) Indexed: 15.8 ml/m2 LAV(MOD-sp2): 33.5 ml LAV(MOD-sp4): 35.8 ml Time Measurements MV dec time: 0.25 sec Doppler Measurements & Calculations MV E max franky: 80.3 cm/sec Lat Peak E' Franky: 8.4 cm/sec Med Peak E' Franky: 9.2 cm/sec MV A max franky: 69.4 cm/sec E/E' lat: 9.6 E/E' med: 8.8 MV E/A: 1.2 MV V2 max: 102.1 cm/sec MV P1/2t max franky: 104.0 cm/sec Ao V2 max: 126.6 cm/sec MV max P.2 mmHg MV P1/2t: 82.6 msec Ao max P.4 mmHg MV V2 mean: 55.8 cm/sec MV dec slope: 368.6 cm/sec2 Ao V2 mean: 77.4 cm/sec MV mean P.5 mmHg MVA(P1/2t): 2.7 cm2 Ao mean P.9 mmHg MV V2 VTI: 26.2 cm Ao V2 VTI: 21.2 cm LV V1 max: 106.5 cm/sec PA V2 max: 101.1 cm/sec LV V1 max P.5 mmHg LV V1 mean P.2 mmHg LV V1 mean: 70.1 cm/sec LV V1 VTI: 21.2 cm Interpretation Summary The estimated ejection fraction is 65 %. Normal diastology for age. Unable to estimate RV systolic pressure due to insufficient tricuspid regurgitant envelope. There is no comparison study available. Ordering Physician: Rafael Mcfadden Referring Physician: Rafael Mcfadden Performed By: Oswald Javier RCS
== END ==
LOC: CVS 12:47
PROVIDERS: Family Provider Family Medicine; PCP Family Medicine; Referring Provider Internal Medicine Cardiovascular Disease; Visit Provider Internal Medicine Cardiovascular Disease
DX: I25.10 Atherosclerotic heart disease of native coronary artery without angina pectoris (principal); I49.3 Ventricular premature depolarization; Z95.1 Presence of aortocoronary bypass graft
CPT/HCPCS: 93306

== ENCOUNTER → 2019-08-05 09:10 | Outpatient (CLI) | payer MEDICARE, SELFPAY ==
[2019-06-28 11:46] VITALS: BMI 32.8
[2019-07-18 11:53] LABS: AST(SGOT) 20 U/L (15-37); Alanine Aminotransfer ALT/SGPT 36 U/L (16-61); Albumin, Serum 3.9 g/dL (3.2-5.0); Alkaline Phosphatase 105 U/L (45-117); Bilirubin, Direct 0.12 mg/dL (0.00-0.30); Cholesterol 128 mg/dL (200); Globulin 3.4 g/dL (2.2-4.2); High Density Lipoprotein 37 mg/dL; Protein, Total 7.3 g/dL (6.4-8.2); Triglycerides 108 mg/dL; Very Low Density Lipoprotein 22 mg/dL (5-40)
--- NOTE | 2019-08-05 09:11 | STEWCON_ITS ---
Reason For Study: CAD/ASHD Stress Results Protocol: Chris Protocol WITH DEFINITY Maximum Predicted HR: 164 bpm Target HR: 139 bpm % Maximum Predicted HR: 80 % DurationHeart Rate Stage (mm:ss) (bpm) BP Comment baseline 71 138/805.5 ml total definity given stage 1 3:00 86 140/80 stage 2 3:00 100 148/88 stage 3 3:00 112 156/90 stage 4 1:30 132 / recovery 79 140/78 Stress Duration: 10:30 mm:ss Maximum Stress HR: 132 bpm Baseline Echocardiogram Findings The estimated ejection fraction is 60 %. Stress Echo Wall motion Data Resting WM Intermediate WM Stress WM Resting Wall Motion Wall Motion Stress Basal anteroseptal: Mildly No regional wall motion hypokinetic. abnormalities noted. EKG Data The baseline ECG displays normal sinus rhythm. The patient exercised according to the regular Chris protocol for a total duration of 10:30. The maximum heart rate attained was 139 beats per minute. This was 84% of maximum predicted heart rate. The patient exercised into stage 4 of the Chris protocol. During stress, there were no ST or T wave changes noted to suggest ischemia. No clinical angina was noted. No arrhythmias noted. Interpretation Summary The estimated ejection fraction is 60 %. Basal anteroseptal: Mildly hypokinetic Normal, adequate, treadmill echocardiogram. Negative for ischemia by EKG and echocardiographic anterior. No anginal symptoms noted. No arrhythmias noted. Average exercise capacity for age. Patient tolerated procedure well. Test terminated due to dyspnea. No complications. Final LVEF is 75%. The study was technically difficult. Contrast injection was performed. Ordering Physician: Rafael Mcfadden Referring Physician: Rafael Mcfadden Performed By: Oswald Javier RCS
== END ==
PROVIDERS: Family Provider Family Medicine; PCP Family Medicine; Referring Provider Internal Medicine Cardiovascular Disease; Visit Provider Internal Medicine Cardiovascular Disease
DX: I25.10 Atherosclerotic heart disease of native coronary artery without angina pectoris (principal); I49.3 Ventricular premature depolarization; I10 Essential (primary) hypertension; E78.5 Hyperlipidemia, unspecified; Z98.890 Other specified postprocedural states; Z95.1 Presence of aortocoronary bypass graft
CPT/HCPCS: 36415; 80061; 80076; 93017; 93350; Q9957; A4216; C8928